=== PATIENT | male | born 1965 | race Caucasian/White ===

== ENCOUNTER → 2017-11-01 08:00 | Outpatient (CLI) | payer OTHER, SELFPAY ==
[2017-11-01 10:36] LABS: Microalbumin:Creatinine Ratio 20.3 mg/g CRE (<30 mg/g CRE)
[2017-11-01 10:40] LABS: AST(SGOT) 28 U/L (15-37); Alanine Aminotransfer ALT/SGPT 54 U/L (16-61); Albumin, Serum 3.6 g/dL (3.2-5.0); Alkaline Phosphatase 68 U/L (45-117); Anion Gap 12 (5-15); BUN 13 mg/dL (7-18); BUN/Creat Ratio 14.9 RATIO (10-20); Bilirubin, Direct 0.06 mg/dL (0.00-0.30); Calcium,Total 9.1 mg/dL (8.5-10.1); Chloride 103 mmol/L (98-107); Cholesterol 163 mg/dL (200); Creatinine, Serum 0.87 mg/dL (0.70-1.30); EST Glomerular Filtration Rate 98 mL/min (>60); Est Glom Filt Rate - Afr Amer 118 mL/min (>60); Globulin 4.4 g/dL (2.2-4.2); Glucose 137 mg/dL (74-106); High Density Lipoprotein 32 mg/dL; Potassium 4.3 mmol/L (3.5-5.1); Sodium Level 139 mmol/L (136-145); Triglycerides 178 mg/dL; Very Low Density Lipoprotein 36 mg/dL (5-40)
[2017-11-01 10:44] LABS: Hemoglobin A1c 6.9 % (4.2-6.3)
== END ==
PROVIDERS: Family Provider Family Medicine; PCP Family Medicine; Visit Provider Family Medicine
DX: E11.9 Type 2 diabetes mellitus without complications (principal)
CPT/HCPCS: 36415; 80048; 80061; 80076; 82043; 82570; 83036

== ENCOUNTER → 2018-05-22 12:18 | Outpatient (CLI) | payer OTHER, SELFPAY | PROVIDERS: Family Provider Family Medicine; PCP Family Medicine; Referring Provider Family Medicine; Visit Provider Family Medicine | DX: E11.9 Type 2 diabetes mellitus without complications (principal) ==

== ENCOUNTER → 2018-06-29 12:22 | Outpatient (CLI) | payer OTHER, SELFPAY | PROVIDERS: Family Provider Family Medicine; PCP Family Medicine; Referring Provider Family Medicine; Visit Provider Family Medicine | DX: N39.0 Urinary tract infection, site not specified (principal) | CPT/HCPCS: 87086 ==

== ENCOUNTER 2018-10-22 18:49 | Emergency (ER) | payer OTHER, SELFPAY ==
[2018-10-22 18:50] VITALS: BP 168/118; PULSE 111; RESP 28; TEMP 36.1; O2SAT 97; BMI 39.9
[2018-10-22] MEDS: Ondansetron 4 MG/2 ML Vial IV (19:09)
[2018-10-22] MEDS: Morphine 4 MG/ML Syringe IV (19:10)
[2018-10-22 19:17] LABS: Bacteria 0 SEEN /hpf (None Seen); Mucous, Urine 0 SEEN /hpf (<or=2+); Squamous Epithelial Cells - UA 0 SEEN /hpf (0-5)
[2018-10-22] MEDS: Ketorolac 15 MG/ML Vial IV (19:17)
--- NOTE | 2018-10-22 19:20 | CT_ITS ---
STUDY: CT ABDOMEN AND PELVIS WITHOUT CONTRAST REASON FOR EXAM: Male, 53 years old. Left flank pain. History of kidney stones. RADIATION DOSAGE (If Supplied By Facility): CTDIvol = ( 22.33 ) mGy, DLP = ( 1177.06 ) mGycm TECHNIQUE: Transaxial images were obtained from the dome of the diaphragm to the symphysis pubis without oral contrast, and without intravenous contrast. Sagittal and coronal images were reconstructed. Individualized dose optimization techniques were used for this CT. COMPARISON: CT with oral and IV contrast August 11, 2014; abdominal ultrasound July 22, 2014. FINDINGS: The visualized lung bases are unremarkable. The visualized portions of the heart are within normal limits. There is decreased attenuation of the liver consistent with steatosis. There is hepatomegaly with the right lobe measuring 23.9 cm in height. The portal vein diameter is 15.5 mm. There are surgical clips in the gallbladder fossa consistent with a prior cholecystectomy. Normal spleen. Normal pancreas. Normal bilateral adrenal glands. The stone seen previously in the upper pole right kidney is not present, but an 8mm nonobstructing stone is now seen at the lower pole. On the left, lower pole nonobstructing stone has increased to 8 mm diameter. There is minimal left pelvocaliectasis and subtle perinephric stranding due to a 2 mm stone near the ureteropelvic junction. The ureter below this point is nondistended Normal visualized stomach. Normal small intestine. Normal colon. There is non-visualization of the appendix. There is minimal atherosclerotic calcification of the abdominal aorta, without a demonstrated aneurysm. Normal inferior vena cava. Normal retroperitoneum. Low volume urinary bladder. Normal visualized prostate gland. There is a small umbilical hernia containing fat. There are diffuse degenerative changes of the visualized thoracic spine, with multilevel large bridging or nonbridging anterolateral endplate osteophytes. This continues in the upper lumbar spine, while more mild degenerative changes are seen in the lower lumbar region. CT/Abdomen/Pelvis without Cont IMPRESSION: 1. Bilateral nephrolithiasis again noted. Minimal left pelvocaliectasis due to 2 mm stone at the ureteropelvic junction. 2. Hepatomegaly with steatosis. 3. Prior cholecystectomy. 4. The bowel is unremarkable without signs of obstruction. The appendix is not visualized. 5. Stable small, fat-containing umbilical hernia. 6. Stable degenerative changes of the spine, as noted. Electronically Signed: Zana Otero MD at 19:51 EDT , Service support ,
--- NOTE | 2018-10-22 19:45 | ED.VIS.GI ---
History of Present Illness Chief Complaint: Flank Pain Informant: Patient - Abdominal Pain/Flank Pain Onset: Yesterday Context: Sudden Onset Timing: Continuous - and much worse in past couple hrs Location: Left Flank Current Severity: Severe Maximum Severity: Severe Worsened by: Nothing Relieved by: Nothing - Nausea/Vomiting/Emesis GI Symptom: Negative for: Nausea, Vomiting - Diarrhea/Melena/Hematochezia GI Symptom: Negative for: Diarrhea, Melena, Hematochezia Associated Symptoms: Negative for: Dysuria, Frequency, Hematuria, Urgency Narrative: Patient has had numerous kidney stones in the past, all of which he has passed on his own and never needed lithotripsy or surgery for. He felt like he had another one yesterday in the left flank, he has not had a CAT scan in 5 years although then it showed multiple right-sided nephrolithiasis, yesterday the pain eased off and then returned an hour or so prior to arrival very severe and constant, not colicky, he states it is never felt this severe before. No urinary symptoms. No syncopal episodes or radiation into his back it is just in his left lower quadrant at this time, no scrotal discomfort. Prior similar symptoms: Yes - KS pain - Past Medical History (1) Hypertension Status: Chronic (2) Hyperlipidemia Status: Chronic (3) Type 2 diabetes mellitus Status: Chronic (4) Kidney stones Status: Chronic Past Medical History - Allergies and Home Meds Allergies/Adverse Reactions: Allergies No Known Allergies Allergy (Verified 10/22/18 18:50) Primary Care Physician: Victorino Foreman MD [Primary Care Provider] - Lives: Spouse/ Significant Other Smoking Status: Former smoker Drugs: None Review of Systems General: Denies: Chills, Fever, Sweats Eyes: Denies: Visual changes - bilaterally, Diplopia ENT: Denies: Rhinorrhea, Sore throat Cardiovascular: Denies: Chest pain, Palpitations Respiratory: Denies: Dyspnea, Cough, Dyspnea on exertion Gastrointestinal: Reports: Abdominal pain. Denies: Nausea, Vomiting, Diarrhea, Melena, Hematochezia Genitourinary: Denies: Dysuria, Hematuria, Frequency Musculoskeletal: Denies: Back pain, Extremity Pain Skin: Denies: Rash, Wounds Neurological: Denies: Headache, Weakness, Numbness Physical Exam Vital Signs/Narrative: Vital Signs Temp Pulse Resp BP Pulse Ox 10/22/18 18:50 96.9 F L 111 H 28 H 168/118 H 97 Inital Vital Signs reviewed: Yes General: Well nourished, Well developed, Obese, Acute Distress - Painful, pacing the room Head: Normocephalic, Atraumatic Eyes: Perrl, EOMI ENT: Moist mucous membranes, No rhinorrhea Neck: Supple, Nontender Cardiovascular: Regular rate, Regular rhythm, No murmurs, Tachycardia Respiratory: No distress, CTA bilaterally, Chest nontender Abdomen: Soft, Nontender, Nondistended, Normal bowel sounds Back: Nontender, Normal Inspection. Negative for: CVA tenderness Extremities: Nontender, No edema Skin: Normal color, No rash, Diaphoresis - Face/forehead, No Trauma Neurological: Alert, Oriented x3, Cranial nerves II-XII grossly intact, Normal Strength, Normal Sensation, Normal Gait Psychological: Normal Mood, - - Anxious Diagnostic/Tx/Re-eval Impressions Abdomen/Pelvis CT 10/22/18 19:20 IMPRESSION: 1. Bilateral nephrolithiasis again noted. Minimal left pelvocaliectasis due to 2 mm stone at the ureteropelvic junction. 2. Hepatomegaly with steatosis. 3. Prior cholecystectomy. 4. The bowel is unremarkable without signs of obstruction. The appendix is not visualized. 5. Stable small, fat-containing umbilical hernia. 6. Stable degenerative changes of the spine, as noted. Electronically Signed: Zana Otero MD at 19:51 EDT , Service support , 10/22/18 19:20 CT Abd [Abdomen/Pelvis without Cont] [CT] Stat Laboratory Results 10/22/18 10/22/18 10/22/18 19:00 19:00 19:12 WBC 9.3 RBC 4.51 L Hgb 14.1 Hct 40.7 MCV 90.2 MCH 31.3 MCHC 34.6 RDW Std Deviation 41.6 RDW Coeff of Yanely 12.6 Plt Count 255 MPV 11.4 Immature Gran % (Auto) 0.500 Neut % (Auto) 65.0 Lymph % (Auto) 23.9 Coffey % (Auto) 9.4 Eos % (Auto) 0.9 Baso % (Auto) 0.3 Absolute Neuts (auto) 6.1 Absolute Lymphs (auto) 2.23 Nucleated RBC % 0 Sodium 141 Potassium 4.3 Chloride 104 Carbon Dioxide 27.0 Anion Gap 10 BUN 17 Creatinine 1.32 H Estim Creat Clear Calc 65.46 Est GFR (MDRD) Af Amer 73 Est GFR (MDRD) Non-Af 60 BUN/Creatinine Ratio 12.9 Glucose 199 H Calcium 9.7 Urine Color Yellow Urine Clarity Clear Urine pH 5.0 Ur Specific [place] 1.025 Urine Protein 15 H Urine Glucose (UA) 50 H Urine Ketones Negative Urine Occult Blood 250 H Urine Nitrite Negative Urine Bilirubin Negative Urine Urobilinogen Normal Ur Leukocyte Esterase Negative Urine RBC 10-25 SEEN Urine WBC 0 SEEN Ur Squamous Epith Cells 0 SEEN Urine Bacteria 0 SEEN Urine Mucus 0 SEEN - Medical Decision Making After treatment with analgesics patient is feeling much better, on reexamination his symptoms are resolved and he has been very comfortable for the past 1.5 hours. Labs show mild renal insufficiency, not enough that he needs acute intervention or admission at this time with a creatinine of 1.3. His urine shows no signs of infection but blood is present. CT shows mild pelvocaliectasis in his left renal pelvis along with a 2 mm stone present that presumably is causing his pain. There is no other sign of ureterolithiasis. We had him strain urine here but he did not catch any. There are also multiple other stones in both kidneys. At this time think he stable for discharge home, will give him a prescription for analgesics and follow-up with urology. He is comfortable with that plan and is established with the urology practice here. ED Disposition - Plan for ED Patient: Disposition: Home or Assisted Living Diagnosis: Bilateral nephrolithiasis, Pelvicaliectasis Instructions: KIDNEY STONE w/ Colic Prescriptions: Oxycodone HCl/Acetaminophen [Percocet 5/325] 1 tab PO Q6H PRN PRN 3 Days #12 tab PRN Reason: Pain Prescription Printed Referrals: Victorino Foreman MD [Primary Care Provider] - Mario Montanez MD [STAFF PHYSICIAN] - (Call for appointment)
[2018-10-22 20:03] LABS: Absolute Lymphocyte Count 2.23 X10^3/uL (0.83-4.51); Absolute Neutrophil Count 6.1 X10^3/uL (2.0-7.7); Basophil# 0.03 X10^3/uL; Basophil% 0.3 % (0-1); Eosinophil# 0.08 X10^3/uL; Eosinophils% 0.9 % (0-5); Hematocrit 40.7 % (40-54); Hemoglobin 14.1 g/dL (13.0-16.5); Lymphocyte # 2.23 X10^3/ul (4.0); Lymphocyte % 23.9 % (19-41); Mean Corp Hgb Conc 34.6 g/dL (32-36); Mean Corpuscular Hgb 31.3 pg (27.0-32.0); Mean Corpuscular Volume 90.2 fL (80-94); Mean Platelet Vol. 11.4 fl (6.2-12.0); Monocyte# 0.88 X10^3/uL; Monocyte% 9.4 % (0-10); NRBC Flagged by Analyzer 0 % (0-5); Neutrophil # 6.05 X10^3/uL (2.7-7.7); Platelet Count 255 K/mm3 (150-450); RBC Distribution Width CV 12.6 % (11.6-14.6); RBC Distribution Width SD 41.6 fl (35.1-43.9); Red Blood Count 4.51 M/mm3 (4.6-6.2); White Blood Count 9.3 K/mm3 (4.4-11.0)
[2018-10-22 20:08] LABS: Anion Gap 10 (5-15); BUN 17 mg/dL (7-18); BUN/Creat Ratio 12.9 RATIO (10-20); Calcium,Total 9.7 mg/dL (8.5-10.1); Chloride 104 mmol/L (98-107); Creatinine, Serum 1.32 mg/dL (0.70-1.30); EST Glomerular Filtration Rate 60 mL/min (>60); Est Glom Filt Rate - Afr Amer 73 mL/min (>60); Estimated Creatinine Clearance 65.46 ml/min; Glucose 199 mg/dL (74-106); Potassium 4.3 mmol/L (3.5-5.1); Sodium Level 141 mmol/L (136-145)
[2018-10-22 20:44] LABS: Color, Urine Yellow (Yellow); Glucose, Dipstick 50 mg/dl (Normal); Ketone-Dipstick Negative (Negative); Leukocyte Esterase-Dipstick Negative /ul (Negative); Nitrite-Dipstick Negative (Negative); Occult Blood-Urine 250 /ul (Negative); Protein-Dipstick 15 mg/dl (Negative); Specific Gravity, Urine 1.025 (1.002-1.030); Urine Bilirubin Dipstick Negative (Negative); Urine Clarity Clear (Clear); Urine Urobilinogen Normal (Normal)
[2018-10-22 20:47] LABS: Red Blood Cells-Urine 10-25 SEEN /hpf (0-5); White Blood Cells 0 SEEN /hpf (0-5)
[2018-10-22 21:44] VITALS: RESP 16
[2018-10-22] MEDS: oxyCODONE 5 MG Tablet PO (22:32)
[2018-10-22 22:39] VITALS: BP 121/64; PULSE 92; RESP 18; O2SAT 95
== END 2018-10-22 22:39 | disposition home or self-care (01) ==
PROVIDERS: Emergency Provider Emergency Medicine; Family Provider Family Medicine; PCP Family Medicine
DX: N20.2 Calculus of kidney with calculus of ureter (principal); N28.89 Other specified disorders of kidney and ureter; I10 Essential (primary) hypertension; E11.9 Type 2 diabetes mellitus without complications; E78.5 Hyperlipidemia, unspecified; Z87.442 Personal history of urinary calculi; Z79.84 Long term (current) use of oral hypoglycemic drugs; Z79.899 Other long term (current) drug therapy; Z87.891 Personal history of nicotine dependence
CPT/HCPCS: 74176; 80048; 81001; 85025; 96374; 96375; 99285; A4216; J2405

== ENCOUNTER 2018-11-07 12:21 | Day surgery (SDC) | payer OTHER, SELFPAY ==
--- NOTE | 2018-11-07 12:15 | RAD_ITS ---
STUDY: X-RAY - ABDOMEN/PELVIS REASON FOR EXAM: Male, 53 years old. Kidney stones. TECHNIQUE: Single AP view of the abdomen / pelvis. COMPARISON: None. FINDINGS: There is an unremarkable bowel gas pattern. There is a 9 mm calculus in the lower pole calyx of the right kidney. There is also evidence of a 7.1 mm calculus in the mid lower pole of the left kidney. The patient is status post cholecystectomy. Normal visualized osseous structures. RAD/Abdomen Single View IMPRESSION: Calyceal stones in the lower poles of both kidneys as described. Electronically Signed: Monty Fletcher, at 12:57 EDT , Service support ,
[2018-11-07 13:06] VITALS: BP 159/98; PULSE 126; RESP 18; TEMP 36.2; O2SAT 99; BMI 39.0
[2018-11-07 13:20] LABS: Bedside Glucose 124 mg/dL (70-110)
--- NOTE | 2018-11-07 14:59 | PCM.DC.URO ---
Discharge Diet: Light diet - advance as tolerated Discharge Activity: Return to Normal Activity, May not drive while taking narcotic pain medications. Call your doctor if your incision/area has: Sudden Increased Bleeding Call your doctor if you observe: Uncontrolled pain Suture Line Care: Avoid Pulling/Pushing, Avoid Pinching/Bending Allergies/Adverse Reactions: Allergies No Known Allergies Allergy (Verified 11/02/18 09:00) Medications to take at Discharge Glimepiride [Amaryl] 4 mg PO DAILY 10/22/18 Lisinopril [Prinivil] 10 mg PO DAILY 10/22/18 Metformin HCl 1,000 mg PO BID 10/22/18 Pravastatin [Pravachol] 40 mg PO DAILY 10/22/18 Aspirin [Aspir 81] 81 mg PO DAILY 11/02/18 Cetirizine HCl [Zyrtec] 10 mg PO DAILY 11/02/18 Ciprofloxacin [Cipro] 500 mg PO BID #14 tab 11/07/18 Hydrocodone/Acetaminophen [[place] 5-325 Tablet] 1 ea PO Q4H PRN PRN 7 Days #20 tab 11/07/18 The following prescriptions were given: Ciprofloxacin [Cipro] 500 mg PO BID #14 tab Prescription Printed Hydrocodone/Acetaminophen [[place] 5-325 Tablet] 1 ea PO Q4H PRN PRN 7 Days #20 tab PRN Reason: Pain Prescription Printed Primary Care Physician: Victorino Foreman MD [Primary Care Provider] - Test Results: Test results from this visit will be discussed in further detail at your follow-up appointment, if applicable. Please Follow Up With: Mario Montanez MD When: please call to make an appointment.
[2018-11-07] MEDS: Ketorolac 15 MG/ML Vial IV (15:00)
[2018-11-07] MEDS: Cefazolin 2 GM in 0.9% Normal Saline 100 ML IV (15:04)
--- NOTE | 2018-11-07 16:05 | OP.PCM_ITS ---
Report of Operation Date of Procedure: 11/07/18 Pre-Operative Diagnosis: Left renal calculi Post-Operative Diagnosis: The same Surgery/Procedure Performed:: Cystoscopy and left stent placement and left extracorporeal shockwave lithotripsy Description of Surgical Findings:: 53-year-old male with a stone in the left kidney presents today for shockwave lithotripsy he was taken back to the operating room after smooth induction of anesthesia he was placed in dorsolithotomy position went into the bladder with a 21 Frisian rigid cystourethroscope grabbed the wire advanced a wire up into the kidney over the wire place a stent 6 Frisian by 26 cm stent, pulled the string in the wire and the wire was removed and the stent coiled in the kidney bladder good position we then positioned the table for lithotripsy and then we found the stone in the left kidney under fluoroscopy and under fluoroscopic guidance we delivered 3000 shockwaves to the stone at a rate of 90 kV at the 5-6 and the stone appeared to have fragmented very successfully. At the end of the treatment cycle the patient's anesthetic was reversed. Leave the stent in until next week we will see him next week with a KUB it looks clear will remove the stent. Patient's anesthesia is currently being reversed. Type of Anesthesia:: General Drains: stent - Admit VTE Documentation VTE Present on Admission: No VTE Mechan Device Prophylaxis: SCD's
[2018-11-07 16:13] VITALS: BP 155/100; BP 159/98; PULSE 101; RESP 16; TEMP 36.7; O2SAT 98
[2018-11-07] MEDS: Lactated Ringers 1,000 ML 75 ML IV (16:23)
[2018-11-07 16:25] LABS: Bedside Glucose 111 mg/dL (70-110)
[2018-11-07 16:27] VITALS: BP 144/83; BP 159/98; PULSE 81; RESP 14; O2SAT 98
[2018-11-07 16:29] VITALS: BP 159/98; BP 161/78; PULSE 82; RESP 16; O2SAT 96
[2018-11-07 16:33] VITALS: BP 159/98; BP 160/89; PULSE 90; RESP 14; TEMP 36.3; O2SAT 97
[2018-11-07 17:08] VITALS: BP 159/98
== END 2018-11-07 17:12 | disposition home or self-care (01) ==
LOC: SDC 12:28 → AC 12:40
PROVIDERS: Family Provider Family Medicine; PCP Family Medicine; Referring Provider Urology; Visit Provider Urology
PROC: (CPT 50590; principal; 2018-11-07 14:25)
DX: N20.0 Calculus of kidney (principal); N41.1 Chronic prostatitis; I10 Essential (primary) hypertension; E78.00 Pure hypercholesterolemia, unspecified; E11.9 Type 2 diabetes mellitus without complications; G47.30 Sleep apnea, unspecified; E66.9 Obesity, unspecified; Z68.38 Body mass index [BMI] 38.0-38.9, adult; Z87.442 Personal history of urinary calculi; Z79.82 Long term (current) use of aspirin; Z79.84 Long term (current) use of oral hypoglycemic drugs; Z79.899 Other long term (current) drug therapy
CPT/HCPCS: 52356; 74018; 82962; J7120; C1769; C2617; J2405

== ENCOUNTER → 2018-11-15 12:41 | Outpatient (CLI) | payer OTHER, SELFPAY ==
[2018-11-07 13:06] VITALS: BMI 39.0
--- NOTE | 2018-11-15 12:43 | RAD_ITS ---
STUDY: X-RAY - ABDOMEN/PELVIS REASON FOR EXAM: Male, 53 years old. Left-sided kidney stone TECHNIQUE: AP supine abdomen and AP supine and pelvis, 2 images COMPARISON: X-ray abdomen 11/07/2017, CT abdomen and pelvis 10/22/2017. FINDINGS: Left double-J stent. No visible renal or ureteral calculus on the left. Retained lower pole calculus of the right kidney 7 mm stable compared to prior imaging. No other acute abdominopelvic process is evident. RAD/Abdomen Single View IMPRESSION: No visible retained left renal calculus. No evidence of calculus along the left double-J stent. Stable right lower pole calculus. Electronically Signed: Shaka Cooper MD at 13:48 EDT Tel , Service support ,
== END ==
PROVIDERS: Family Provider Family Medicine; PCP Family Medicine; Referring Provider Urology; Visit Provider Urology
DX: N20.0 Calculus of kidney (principal)
CPT/HCPCS: 74018

== ENCOUNTER → 2019-02-13 07:45 | Outpatient (CLI) | payer OTHER, SELFPAY ==
[2019-02-13 10:10] LABS: Anion Gap 10 (5-15); BUN 12 mg/dL (7-18); BUN/Creat Ratio 14.1 RATIO (10-20); Calcium,Total 9.3 mg/dL (8.5-10.1); Chloride 103 mmol/L (98-107); Cholesterol 159 mg/dL (200); Creatinine, Serum 0.85 mg/dL (0.70-1.30); EST Glomerular Filtration Rate 100 mL/min (>60); Est Glom Filt Rate - Afr Amer 122 mL/min (>60); Glucose 165 mg/dL (74-106); High Density Lipoprotein 31 mg/dL; Potassium 3.9 mmol/L (3.5-5.1); Sodium Level 138 mmol/L (136-145); Triglycerides 196 mg/dL; Very Low Density Lipoprotein 39 mg/dL (5-40)
[2019-02-13 10:11] LABS: Hemoglobin A1c 7.3 % (4.2-6.3)
== END ==
PROVIDERS: Family Provider Family Medicine; PCP Family Medicine; Referring Provider Family Medicine; Visit Provider Family Medicine
DX: E11.9 Type 2 diabetes mellitus without complications (principal); I10 Essential (primary) hypertension
CPT/HCPCS: 36415; 80048; 80061; 83036

== ENCOUNTER → 2019-02-15 14:47 | Outpatient (CLI) | payer OTHER, SELFPAY | PROVIDERS: Family Provider Family Medicine; PCP Family Medicine; Referring Provider Family Medicine; Visit Provider Family Medicine | DX: R30.0 Dysuria (principal) | CPT/HCPCS: 87086 ==

== ENCOUNTER → 2020-04-21 08:09 | Outpatient (CLI) | payer OTHER, SELFPAY ==
[2020-04-21 11:04] LABS: Anion Gap 9 (5-15); BUN 11 mg/dL (7-18); BUN/Creat Ratio 11.7 RATIO (10-20); Calcium,Total 9.5 mg/dL (8.5-10.1); Chloride 101 mmol/L (98-107); Cholesterol 163 mg/dL (200); Creatinine, Serum 0.94 mg/dL (0.70-1.30); EST Glomerular Filtration Rate 89 mL/min (>60); Est Glom Filt Rate - Afr Amer 107 mL/min (>60); Glucose 212 mg/dL (74-106); High Density Lipoprotein 33 mg/dL; Sodium Level 135 mmol/L (136-145); Triglycerides 249 mg/dL; Very Low Density Lipoprotein 50 mg/dL (5-40)
== END ==
PROVIDERS: PCP Family Medicine; Visit Provider Family Medicine
DX: E11.9 Type 2 diabetes mellitus without complications (principal)
CPT/HCPCS: 36415; 80048; 80061

== ENCOUNTER → 2020-07-17 15:57 | Outpatient (CLI) | payer OTHER, SELFPAY ==
[2020-07-17 18:02] LABS: Anion Gap 6 (5-15); BUN 14 mg/dL (7-18); BUN/Creat Ratio 14.9 RATIO (10-20); Calcium,Total 9.7 mg/dL (8.5-10.1); Chloride 104 mmol/L (98-107); Creatinine, Serum 0.94 mg/dL (0.70-1.30); EST Glomerular Filtration Rate 89 mL/min (>60); Est Glom Filt Rate - Afr Amer 107 mL/min (>60); Glucose 196 mg/dL (74-106); Potassium 4.1 mmol/L (3.5-5.1); Sodium Level 137 mmol/L (136-145)
== END ==
PROVIDERS: PCP Family Medicine; Visit Provider Family Medicine
DX: E11.9 Type 2 diabetes mellitus without complications (principal)
CPT/HCPCS: 36415; 80048

== ENCOUNTER 2020-07-23 13:47 | Outpatient (RCR) | payer OTHER, SELFPAY | END 2020-09-01 23:59 | LOC: IMMUN 13:47 | PROVIDERS: PCP Family Medicine; Visit Provider Family Medicine | DX: Z23 Encounter for immunization (principal) | CPT/HCPCS: 0001A; 0002A; 91300 ==

== ENCOUNTER → 2021-01-21 07:17 | Outpatient (CLI) | payer OTHER, SELFPAY ==
[2021-01-21 10:35] LABS: Microalbumin,Random Urine 8.3 mg/L (NO RANGE EST.)
[2021-01-21 10:38] LABS: Anion Gap 9 (5-15); BUN 21 mg/dL (7-18); BUN/Creat Ratio 20.8 RATIO (10-20); Calcium,Total 9.5 mg/dL (8.5-10.1); Chloride 102 mmol/L (98-107); Cholesterol 165 mg/dL (200); Creatinine, Serum 1.01 mg/dL (0.70-1.30); EST Glomerular Filtration Rate 82 mL/min (>60); Est Glom Filt Rate - Afr Amer 99 mL/min (>60); Glucose 124 mg/dL (74-106); High Density Lipoprotein 35 mg/dL; Potassium 4.5 mmol/L (3.5-5.1); Sodium Level 135 mmol/L (136-145); Triglycerides 160 mg/dL; Very Low Density Lipoprotein 32 mg/dL (5-40)
== END ==
PROVIDERS: PCP Family Medicine; Referring Provider Family Medicine; Visit Provider Family Medicine
DX: I10 Essential (primary) hypertension (principal)
CPT/HCPCS: 36415; 80048; 80061; 82043

== ENCOUNTER → 2021-10-20 | Outpatient (CLI) | payer OTHER, SELFPAY ==
[2021-10-20 10:13] LABS: Anion Gap 7 (5-15); BUN 26 mg/dL (7-18); BUN/Creat Ratio 25.7 RATIO (10-20); Calcium,Total 9.7 mg/dL (8.5-10.1); Chloride 104 mmol/L (98-107); Cholesterol 154 mg/dL (200); Creatinine, Serum 1.01 mg/dL (0.70-1.30); EST Glomerular Filtration Rate 81 mL/min (>60); Est Glom Filt Rate - Afr Amer 99 mL/min (>60); Glucose 101 mg/dL (74-106); High Density Lipoprotein 33 mg/dL; Potassium 4.6 mmol/L (3.5-5.1); Sodium Level 136 mmol/L (136-145); Triglycerides 152 mg/dL; Very Low Density Lipoprotein 30 mg/dL (5-40)
== END | disposition home or self-care (01) ==
LOC: MTLAB 07:15
PROVIDERS: PCP Family Medicine; Referring Provider Family Medicine; Visit Provider Family Medicine
DX: I10 Essential (primary) hypertension (principal)
CPT/HCPCS: 36415; 80048; 80061

== ENCOUNTER → 2022-08-17 | Outpatient (CLI) | payer OTHER, SELFPAY ==
[2022-08-17 10:38] LABS: Anion Gap 7 (5-15); BUN 15 mg/dL (7-18); Calcium,Total 9.5 mg/dL (8.5-10.1); Chloride 105 mmol/L (98-107); Cholesterol 143 mg/dL (200); Creatinine, Serum 0.94 mg/dL (0.70-1.30); EST Glomerular Filtration Rate 89 mL/min (>60); Est Glom Filt Rate - Afr Amer 107 mL/min (>60); Glucose 126 mg/dL (74-106); High Density Lipoprotein 34 mg/dL; Potassium 4.9 mmol/L (3.5-5.1); Sodium Level 137 mmol/L (136-145); Triglycerides 108 mg/dL; Very Low Density Lipoprotein 22 mg/dL (5-40)
== END | disposition home or self-care (01) ==
LOC: MFPLAB 08:32
PROVIDERS: PCP Family Medicine; Visit Provider Family Medicine
DX: E11.9 Type 2 diabetes mellitus without complications (principal)
CPT/HCPCS: 36415; 80048; 80061

== ENCOUNTER → 2023-06-22 | Outpatient (CLI) | payer OTHER, SELFPAY ==
[2023-06-22 10:18] LABS: Microalbumin,Random Urine 23.9 mg/L (NO RANGE EST.); Microalbumin:Creatinine Ratio 32.3 mg/g CRE (<30 mg/g CRE)
[2023-06-22 10:42] LABS: AST(SGOT) 18 U/L (15-37); Alanine Aminotransfer ALT/SGPT 23 U/L (16-61); Alkaline Phosphatase 85 U/L (45-117); Anion Gap 5 (5-15); BUN 17 mg/dL (7-18); BUN/Creat Ratio 19.3 RATIO (10-20); Calcium,Total 9.5 mg/dL (8.5-10.1); Chloride 102 mmol/L (98-107); Cholesterol 171 mg/dL (200); Creatinine, Serum 0.88 mg/dL (0.70-1.30); EST Glomerular Filtration Rate 95 mL/min (>60); Est Glom Filt Rate - Afr Amer 115 mL/min (>60); Glucose 134 mg/dL (74-106); High Density Lipoprotein 40 mg/dL; Potassium 4.5 mmol/L (3.5-5.1); Sodium Level 134 mmol/L (136-145); Triglycerides 183 mg/dL; Very Low Density Lipoprotein 37 mg/dL (5-40)
== END | disposition home or self-care (01) ==
LOC: MFPLAB 08:28
PROVIDERS: PCP Family Medicine; Visit Provider Family Medicine
DX: E11.9 Type 2 diabetes mellitus without complications (principal)
CPT/HCPCS: 36415; 80053; 80061; 82043; 82570

== ENCOUNTER → 2023-10-30 | Outpatient (CLI) | payer OTHER, SELFPAY ==
[2023-10-30 10:27] LABS: ALB/GLOB Ratio 0.9 RATIO (0.9-2.4); AST(SGOT) 18 U/L (15-37); Alanine Aminotransfer ALT/SGPT 22 U/L (16-61); Albumin, Serum 3.7 g/dL (3.2-5.0); Alkaline Phosphatase 66 U/L (45-117); Anion Gap 6 (5-15); BUN 17 mg/dL (7-18); BUN/Creat Ratio 17.1 RATIO (10-20); Calcium,Total 9.3 mg/dL (8.5-10.1); Chloride 105 mmol/L (98-107); Cholesterol 125 mg/dL (200); Creatinine, Serum 0.99 mg/dL (0.70-1.30); EST Glomerular Filtration Rate 82 mL/min (>60); Est Glom Filt Rate - Afr Amer 100 mL/min (>60); Glucose 137 mg/dL (74-106); High Density Lipoprotein 38 mg/dL; Potassium 4.4 mmol/L (3.5-5.1); Protein, Total 7.7 g/dL (6.4-8.2); Sodium Level 137 mmol/L (136-145); Thyroid Stim Hormone (TSH) 1.51 uIU/mL (0.358-3.74); Triglycerides 123 mg/dL; Very Low Density Lipoprotein 25 mg/dL (5-40)
== END | disposition home or self-care (01) ==
PROVIDERS: PCP Family Medicine; Referring Provider Physician Assistant; Visit Provider Physician Assistant
DX: E11.21 Type 2 diabetes mellitus with diabetic nephropathy (principal); E78.2 Mixed hyperlipidemia; E04.9 Nontoxic goiter, unspecified
CPT/HCPCS: 36415; 80053; 80061; 84443

== ENCOUNTER → 2024-02-01 | Outpatient (CLI) | payer OTHER, SELFPAY ==
[2024-02-01 10:32] LABS: AST(SGOT) 11 U/L (15-37); Alanine Aminotransfer ALT/SGPT 20 U/L (16-61); Albumin, Serum 3.8 g/dL (3.2-5.0); Alkaline Phosphatase 66 U/L (45-117); Anion Gap 6 (5-15); BUN 18 mg/dL (7-18); BUN/Creat Ratio 17.6 RATIO (10-20); Calcium,Total 9.3 mg/dL (8.5-10.1); Chloride 107 mmol/L (98-107); Creatinine, Serum 1.02 mg/dL (0.70-1.30); EST Glomerular Filtration Rate 80 mL/min (>60); Est Glom Filt Rate - Afr Amer 97 mL/min (>60); Globulin 3.7 g/dL (2.2-4.2); Glucose 197 mg/dL (74-106); Potassium 4.3 mmol/L (3.5-5.1); Protein, Total 7.5 g/dL (6.4-8.2); Sodium Level 138 mmol/L (136-145)
[2024-02-01 10:50] LABS: Microalbumin,Random Urine 5.6 mg/L (NO RANGE EST.); Microalbumin:Creatinine Ratio 14.6 mg/g CRE (<30 mg/g CRE)
[2024-02-01 12:41] LABS: Hemoglobin A1c 7.3 % (3.8-5.6)
== END | disposition home or self-care (01) ==
LOC: MFPLAB 08:43
PROVIDERS: PCP Family Medicine; Visit Provider Physician Assistant
DX: E11.21 Type 2 diabetes mellitus with diabetic nephropathy (principal); E55.9 Vitamin D deficiency, unspecified
CPT/HCPCS: 36415; 80053; 82043; 82306; 82570; 83036

== ENCOUNTER → 2024-08-29 | Outpatient (CLI) | payer OTHER, SELFPAY ==
--- OUTSIDE RECORDS SUMMARY | 2024-08-29 08:47 | XMS RPT_ITS | CCD ---
Author Organization [facility] Care Team Providers Care Communication Center Coordinator Name Role Phone Victorino Mckeon Attending Unavailable Mike, Victorino Primary Care Unavailable Mckeon, Victorino Primary Care Unavailable Emily Beltran Referring Unavailable Emily Beltran Attending Unavailable Mike, Victorino Primary Care Unavailable Emily Beltran Attending Unavailable Victorino Mckeon MD Primary Care Provider FREDI ORELLANA Attending Unavailable MCKEON, VICTORINO Liang Primary Care Unavailable DLUGJOHN, ISATU Attending Unavailable PROVIDER, UNKNOWN Referring Unavailable MCKEON, VICTORINO Liang Primary Care Unavailable DLUGJOHN, ISATU Attending Unavailable PROVIDER, UNKNOWN Referring Unavailable MCKEON, VICTORINO Liang Primary Care Unavailable DLUGOSS, ISATU Attending Unavailable PROVIDER, UNKNOWN Referring Unavailable MCKEON, VICTORINO Liang Primary Care Unavailable PROVIDER, UNKNOWN Referring Unavailable MCKEON, VICTORINO Liang Primary Care Unavailable DLUGOSS, ISATU Attending Unavailable PROVIDER, UNKNOWN Referring Unavailable MCKEON, VICTORINO Liang Primary Care Unavailable PROVIDER, UNKNOWN Referring Unavailable MCKEON, VICTORINO Liang Primary Care Unavailable DLUGJOHN, ISATU Attending Unavailable PROVIDER, UNKNOWN Referring Unavailable MIKE, VICTORINO Liang Primary Care Unavailable Medications Current Medications Medication Drug Class(es) Dates Sig (Normalized) Sig (Original) aspirin 81 mg delayed release oral tablet (11 sources) Platelet Aggregation Inhibitor, Nonsteroidal Anti-inflammatory Drug Start: 11-02-2018 take 81 mg by mouth once daily Aspirin Active 81 MG PO DAILY November 02, 2018 12:00am take 1 tablet by mouth once robin y aspirin (JAMES CHEWABLE ASPIRIN) 81 mg chewable tablet Take 81 mg by mouth once daily. Active cetirizine hydrochloride 10 mg oral capsule (3 sources) Histamine-1 Receptor Antagonist Start: 11-02-2018 take 10 mg by mouth once daily Cetirizine Active 10 MG PO DAILY November 02, 2018 12:00am ciprofloxacin 500 mg oral tablet (3 sources) Quinolone Antimicrobial Start: 11-07-2018 take 500 mg by mouth twice daily Ciprofloxacin Hcl Active 500 MG PO TWICE A DAY November 07, 2018 12:00am CPAP (8 sources) Start: 06-20-2019 CPAP Indications: KRISH on CPAP CPAP supplies. Life time supplies. Request for new DME - HCS. Pt with functioning [employer]Med AirSense set at [id number] with EPR of 3. Compliant. 1 Device 06/20/2019 Active 24 hr empagliflozin 12.5 mg / metFORMIN hydrochloride 1000 mg extended release oral tablet (8 sources) Biguanide, Sodium-Glucose Cotransporter 2 Inhibitor Start: 02-16-2024 take 2 tablets by mouth once daily in the morning SYNJARDY XR 12.5-1,000 mg XR tab Take 2 tablets by mouth every morning. 02/16/2024 Active ergocalciferol 1.25 mg oral capsule (8 sources) Provitamin D2 Compound Start: 02-16-2024 take 1 capsule by mouth every week ergocalciferol 50,000 unit capsule (VITAMIN D2, DRISDOL) Take 1 capsule by mouth one time a week. 02/16/2024 Active glimepiride 4 mg oral tablet (11 sources) Sulfonylurea Start: 10-22-2018 take 4 mg by mouth once daily Glimepiride Active 4 MG PO DAILY October 22, 2018 12:00am lisinopril 40 mg oral tablet (12 sources) Angiotensin Converting Enzyme Inhibitor Start: 12-12-2023 lisinopril (ZESTRIL) 40 mg tablet 12/12/2023 Active Start: 10-22-2018 take 10 mg by mouth once daily Lisinopril Active 10 MG PO DAILY October 22, 2018 12:00am End: 02-28-2024 lisinopril (ZESTRIL, PRINIVI L) 5 mg tablet Take 40 mg by mouth once daily. 02/28/2024 Discontinued metFORMIN hydrochloride 1000 mg oral tablet (4 sources) Biguanide Start: 10-22-2018 End: 02-28-2024 take 1000 mg by mouth twice daily Metformin Active 1000 MG PO TWICE A DAY October 22, 2018 12:00am phenazopyridine hydrochloride 100 mg oral tablet (3 sources) Start: 11-07-2018 take 100 mg by mouth three times daily Phenazopyridine Active 100 MG PO THREE TIMES A DAY November 07, 2018 12:00am pravastatin sodium 40 mg oral tablet (4 sources) HMG-CoA Reductase Inhibitor Start: 10-22-2018 End: 02-28-2024 take 40 mg by mouth once daily Pravastatin Active 40 MG PO DAILY October 22, 2018 12:00am rosuvastatin calcium 20 mg oral tablet (8 sources) HMG-CoA Reductase Inhibitor Start: 02-16-2024 take 1 tablet by mouth once rosuvastatin (CRESTOR) 20 mg tablet Take 1 tablet by mouth every afternoon. 02/16/2024 Active Completed/Discontinued Medications Medication Drug Class(es) Dates Sig (Normalized) Sig (Original) acetaminophen 325 mg / HYDROcodone bitartrate 5 mg oral tablet (3 sources) Opioid Agonist Start: 11-07-2018 End: 11-14-2018 Hydrocodone-Acetami nophen Discontinued 1 EACH PO EVERY 4 HOURS NEEDED 13 10November 07, 2018 November 14, 2018 12:07am acetaminophen 325 mg / oxyCODONE hydrochloride 5 mg oral tablet (3 sources) Opioid Agonist Start: 10-22-2018 End: 10-27-2018 take 1 tablet by mouth every six hours as needed Oxycodone-Acetamino phen Discontinued 1 TABLET PO EVERY 6 HOURS NEEDED 02 26October 22, 2018 October 27, 2018 12:09am Problems Active Problems Problem Classification Problem Date Documented Date Episodic/Chronic Calculus of urinary tract (6 sources) Kidney stone; Translations: [Calculus of kidney] 11-07-2018 Episodic Diabetes mellitus with complications (1 source) Type 2 diabetes mellitus with diabetic nephropathy; Translations: [Type 2 diabetes mellitus with diabetic nephropathy] Onset: 02-26-2024 Chronic Diabetes mellitus without complication (12 sources) Type 2 diabetes mellitus; Translations: [Type 2 diabetes mellitus without complications] Onset: 12-21-2016 11-07-2018 Chronic Disorders of lipid metabolism (3 sources) Hyperlipidemia; Translations: [Hyperlipidemia, unspecified] 11-07-2018 Chronic Essential hypertension (3 sources) Hypertensive disorder; Translations: [Essential (primary) hypertension] 11-07-2018 Chronic Osteoarthritis (14 sources) Osteoarthritis of left knee joint; Translations: [Unilateral primary osteoarthritis, left knee] Onset: 02-29-2024 02-28-2024 Chronic Other diseases of kidney and ureters (3 sources) Kidney disease; Translations: [Other specified disorders of kidney and ureter] 10-23-2018 Chronic Residual codes; unclassified (8 sources) Hypersomnia; Translations: [Hypersomnia, unspecified] Onset: 10-12-2016 08-04-2017 Chronic Residual codes; unclassified (1 source) Pain; Translations: [Pain, unspecified] 02-28-2024 Episodic Past or Other Problems Problem Classification Problem Date Documented Da te Episodic/Chronic Malaise and fatigue (8 sources) Fatigue; Translations: [Other fatigue] Onset: 10-12-2016 08-04-2017 Episodic Residual codes; unclassified (1 source) Pain, unspecified; Translations: [Pain] Onset: 02-28-2024 Episodic Results Test Name Value Interpretation Reference Range Facility CNTHERAPYon 04-04-2024 CNTHERAPY OT/PT/Speech Visit (PTMDRG) EVERARDO MARES ([id number]) 1965 M Date Time Provider Department 04/04/24 10:45 AM ISATU AGUILERA Date Time Provider Department Center 04/04/2024 10:45 AM [id number] AGUILERA [facility] Reason for Visit: PT Progress Note [1596] PT Discharge [752] Primary Visit Diagnosis:Primary osteoarthritis of left knee [M17.12] Allergies As of Date: 04/04/2024 (No Known Allergies) Date Reviewed: 02/28/2024 Reviewed by: Dena Marshall LPN - Fully Assessed Prescriptions as of 07/09/2024 - SYNJARDY XR 12.5-1,000 mg XR tab Take 2 tablets by mouth every morning. - ergocalciferol 50,000 unit capsule (VITAMIN D2, DRISDOL) Take 1 capsule by mouth one time a week. - rosuvastatin (CRESTOR) 20 mg tablet Take 1 tablet by mouth every afternoon. - lisinopril (ZESTRIL) 40 mg tablet - CPAP CPAP supplies. Life time supplies. Request for new DME - HCS. Pt with functioning ResMed AirSense set at [id number] with EPR of 3. Compliant. - glimepiride (AMARYL) 4 mg tablet Take 4 mg by mouth daily with breakfast. - aspirin (JAMES CHEWABLE ASPIRIN) 81 mg chewable tablet Take 81 mg by mouth once daily. Normal [facility] CNTHERAPYon 03-26-2024 CNTHERAPY OT/PT/Speech Visit (PTMDRG) EVERARDO MARES ([id number]) 1965 M Date Time Provider Department 03/26/24 9:15 AM ISATU AGUIELRA Date Time Provider Department Center 03/26/2024 9:15 AM [id number] AGUILERA PTMLONG [facility] Reason for Visit: Physical Therapy [503] Primary Visit Diagnosis:Primary osteoarthritis of left knee [M17.12] Allergies As of Date: 03/26/2024 (No Known Allergies) Date Reviewed: 02/28/2024 Reviewed by: Dena Marshall LPN - Fully Assessed Prescriptions as of 03/26/2024 - SYNJARDY XR 12.5-1,000 mg XR tab Take 2 tablets by mouth every morning. - ergocalciferol 50,000 unit capsule (VITAMIN D2, DRISDOL) Take 1 capsule by mouth one time a week. - rosuvastatin (CRESTOR) 20 mg tablet Take 1 tablet by mouth every afternoon. - lisinopril (ZESTRIL) 40 mg tablet - CPAP CPAP supplies. Life time supplies. Request for new DME - HCS. Pt with functioning ResMed AirSense set at [id number] with EPR of 3. Compliant. - glimepiride (AMARYL) 4 mg tablet Take 4 mg by mouth daily with breakfast. - aspirin (JAMES CHEWABLE ASPIRIN) 81 mg chewable tablet Take 81 mg by mouth once daily. Costumed Character: Therapy (PT/OT/Speech/Resp) ID: [id number] 03/26/2024 10:01 AM Author: ISATU AGUILERA Signed by ISATU AGUILERA PT, DPT on 03/26/2024 at 10:01 AM Document text: Program_ID:[id number] Access Code: [email or web address] URL: [email or web address]/ Date: 03-26-2024 Prepared By: Isatu Aguilera Program Notes Exercises - Sidelying Hip Abduction - 1 x daily - 7 x weekly - 3 sets - 10 reps - Small Range Straight Leg Raise - 1 x daily - 7 x weekly - 3 sets - 10 reps - Supine Hamstring Stretch with Strap - 1 x daily - 7 x weekly - 3 sets - 10 reps - Prone Quadriceps Stretch with Strap - 1 x daily - 7 x weekly - 3 sets - 10 reps - Supine Dynamic Modified Tom Quad and Hip Flexor Dynamic Stretch - 1 x daily - 7 x weekly - 3 sets - 10 reps - Standing Knee Flexion Stretch on Step - 1 x daily - 7 x weekly - 3 sets - 10 reps - Standing Gastroc Stretch on Step - 1 x daily - 7 x weekly - 3 sets - 10 reps - Hooklying Clamshell with Resistance - 1 x daily - 7 x weekly - 3 sets - 10 reps - Seated Hamstring Curl with Anchored Resistance - 1 x daily - 7 x weekly - 3 sets - 10 reps - Side Stepping with Resistance at Ankles - 1 x daily - 7 x weekly - 3 sets - 10 reps ----- [facility] THERAPY NT 03-26-2024 THERAPY NT HNO ID: [id number] Author: ISATU AGUILERA PT, DPT Service: Physical Therapy Author Type: Physical Therapist Type: Therapy (PT/OT/Speech/Resp) Filed: 03/26/2024 10:01 Note Text: Program_ID:[id number] Access Code: [email or web address] URL: [email or web address] [employer]/ Date: 03-26-2024 Prepared By: Isatu Aguilera Program Notes Exercises - Sidelying Hip Abduction - 1 x daily - 7 x weekly - 3 sets - 10 reps - Small Range Straight Leg Raise - 1 x daily - 7 x weekly - 3 sets - 10 reps - Supine Hamstring Stretch with Strap - 1 x daily - 7 x weekly - 3 sets - 10 reps - Prone Quadriceps Stretch with Strap - 1 x daily - 7 x weekly - 3 sets - 10 reps - Supine Dynamic Modified Tom Quad and Hip Flexor Dynamic Stretch - 1 x daily - 7 x weekly - 3 sets - 10 reps - Standing Knee Flexion Stretch on Step - 1 x daily - 7 x weekly - 3 sets - 10 reps - Standing Gastroc Stretch on Step - 1 x daily - 7 x weekly - 3 sets - 10 reps - Hooklying Clamshell with Resistance - 1 x daily - 7 x weekly - 3 sets - 10 reps - Seated Hamstring Curl with Anchored Resistance - 1 x daily - 7 x weekly - 3 sets - 10 reps - Side Stepping with Resistance at Ankles - 1 x daily - 7 x weekly - 3 sets - 10 reps Normal [facility] CNTHERAPYon 03-22-2024 CNTHERAPY OT/PT/Speech Visit (PTMDRG) EVERARDO MARES ([id number]) 1965 M Date Time Provider Department 03/22/24 2:00 PM TEA JIMENEZ [facility] Date Time Provider Department Center 03/22/2024 2:00 PM [id number] JIMENEZ PTMG [facility] Reason for Visit: Physical Therapy [503] Primary Visit Diagnosis:Primary osteoarthritis of left knee [M17.12] Allergies As of Date: 03/22/2024 (No Known Allergies) Date Reviewed: 02/28/2024 Reviewed by: Dena Marshall LPN - Fully Assessed Prescriptions as of 03/22/2024 - SYNJARDY XR 12.5-1,000 mg XR tab Take 2 tablets by mouth every morning. - ergocalciferol 50,000 unit capsule (VITAMIN D2, DRISDOL) Take 1 capsule by mouth one time a week. - rosuvastatin (CRESTOR) 20 mg tablet Take 1 tablet by mouth every afternoon. - lisinopril (ZESTRIL) 40 mg tablet - CPAP CPAP supplies. Life time supplies. Request for new DME - HCS. Pt with functioning ResMed AirSense set at [id number] with EPR of 3. Compliant. - glimepiride (AMARYL) 4 mg tablet Take 4 mg by mouth daily with breakfast. - aspirin (JAMES CHEWABLE ASPIRIN) 81 mg chewable tablet Take 81 mg by mouth once daily. Costumed Character: Therapy (PT/OT/Speech/Resp) ID: [id number] 03/22/2024 2:21 PM Author: TEA JIMENEZ Signed by TEA JIMENEZ PTA on 03/22/2024 at 2:21 PM Document text: Program_ID:[id number] Access Code: [email or web address] URL: [email or web address]/ Date: 03-22-2024 Prepared By: Isatu Aguilera Program Notes Exercises - Sidelying Hip Abduction - 1 x daily - 7 x weekly - 3 sets - 10 reps - Small Range Straight Leg Raise - 1 x daily - 7 x weekly - 3 sets - 10 reps - Supine Hamstring Stretch with Strap - 1 x daily - 7 x weekly - 3 sets - 10 reps - Prone Quadriceps Stretch with Strap - 1 x daily - 7 x weekly - 3 sets - 10 reps - Supine Dynamic Modified Tom Quad and Hip Flexor Dynamic Stretch - 1 x daily - 7 x weekly - 3 sets - 10 reps - Standing Knee Flexion Stretch on Step - 1 x daily - 7 x weekly - 3 sets - 10 reps - Standing Gastroc Stretch on Step - 1 x daily - 7 x weekly - 3 sets - 10 reps - Hooklying Clamshell with Resistance - 1 x daily - 7 x weekly - 3 sets - 10 reps ----- [facility] THERAPY NTon 03-22-2024 THERAPY NT HNO ID: [id number] Author: TEA JIMENEZ PTA Service: ? Author Type: Lock Assembler Type: Therapy (PT/OT/Speech/Resp) Filed: 03/22/2024 14:21 Note Text: Program_ID:[id number] Access Code: [email or web address] URL: [email or web address]/ Date: 03-22-2024 Prepared By: Isatu Aguilera Program Notes Exercises - Sidelying Hip Abduction - 1 x daily - 7 x weekly - 3 sets - 10 reps - Small Range Straight Leg Raise - 1 x daily - 7 x weekly - 3 sets - 10 reps - Supine Hamstring Stretch with Strap - 1 x daily - 7 x weekly - 3 sets - 10 reps - Prone Quadriceps Stretch with Strap - 1 x daily - 7 x weekly - 3 sets - 10 reps - Supine Dynamic Modified Tom Quad and Hip Flexor Dynamic Stretch - 1 x daily - 7 x weekly - 3 sets - 10 reps - Standing Knee Flexion Stretch on Step - 1 x daily - 7 x weekly - 3 sets - 10 reps - Standing Gastroc Stretch on Step - 1 x daily - 7 x weekly - 3 sets - 10 reps - Hooklying Clamshell with Resistance - 1 x daily - 7 x weekly - 3 sets - 10 reps [facility] CNTHERAPYon 03-14-2024 CNTHERAPY OT/PT/Speech Visit (PTMDRG) EVERARDO MARES ([id number]) 1965 M Date Time Provider Department 03/14/24 2:00 PM ISATU AGUILERA Date Time Provider Department Center 03/14/2024 2:00 PM [id number] AGUILERA [facility] Reason for Visit: Physical Therapy [503] Primary Visit Diagnosis:Primary osteoarthritis of left knee [M17.12] Allergies As of Date: 03/14/2024 (No Known Allergies) Date Reviewed: 02/28/2024 Reviewed by: Dena Marshall LPN - Fully Assessed Prescriptions as of 03/14/2024 - SYNJARDY XR 12.5-1,000 mg XR tab Take 2 tablets by mouth every morning. - ergocalciferol 50,000 unit capsule (VITAMIN D2, DRISDOL) Take 1 capsule by mouth one time a week. - rosuvastatin (CRESTOR) 20 mg tablet Take 1 tablet by mouth every afternoon. - lisinopril (ZESTRIL) 40 mg tablet - CPAP CPAP supplies. Life time supplies. Request for new DME - HCS. Pt with functioning [employer] AirSense set at [id number] with EPR of 3. Compliant. - glimepiride (AMARYL) 4 mg tablet Take 4 mg by mouth daily with breakfast. - aspirin (JAMES CHEWABLE ASPIRIN) 81 mg chewable tablet Take 81 mg by mouth once daily. Normal [facility] CNTHERAPYon 03-07-2024 CNTHERAPY OT/PT/Speech Visit (PTMDRG) EVERARDO MARES ([id number]) 1965 M Date Time Provider Department 03/07/24 9:15 AM ISATU AGUILERA Date Time Provider Department Center 03/07/2024 9:15 AM [id number] AGUILERA PTMDRG [facility] Reason for Visit: Physical Therapy [503] Primary Visit Diagnosis:Primary osteoarthritis of left knee [M17.12] Allergies As of Date: 03/07/2024 (No Known Allergies) Date Reviewed: 02/28/2024 Reviewed by: Dena Marshall LPN - Fully Assessed Prescriptions as of 03/07/2024 - SYNJARDY XR 12.5-1,000 mg XR tab Take 2 tablets by mouth every morning. - ergocalciferol 50,000 unit capsule (VITAMIN D2, DRISDOL) Take 1 capsule by mouth one time a week. - rosuvastatin (CRESTOR) 20 mg tablet Take 1 tablet by mouth every afternoon. - lisinopril (ZESTRIL) 40 mg tablet - CPAP CPAP supplies. Life time supplies. Request for new DME - HCS. Pt with functioning ResMed AirSense set at [id number] with EPR of 3. Compliant. - glimepiride (AMARYL) 4 mg tablet Take 4 mg by mouth daily with breakfast. - aspirin (JAMES CHEWABLE ASPIRIN) 81 mg chewable tablet Take 81 mg by mouth once daily. Costumed Character: Therapy (PT/OT/Speech/Resp) ID: [id number] 03/07/2024 9:54 AM Author: ISATU AGUILERA Signed by ISATU AGUILERA PT, DPT on 03/07/2024 at 9:54 AM Document text: Program_ID:[id number] Access Code: [email or web address] URL: [email or web address] [employer]/ Date: 03-07-2024 Prepared By: Isatu Aguilera Program Notes Exercises - Sidelying Hip Abduction - 1 x daily - 7 x weekly - 3 sets - 10 reps - Small Range Straight Leg Raise - 1 x daily - 7 x weekly - 3 sets - 10 reps - Supine Hamstring Stretch with Strap - 1 x daily - 7 x weekly - 3 sets - 10 reps - Prone Quadriceps Stretch with Strap - 1 x daily - 7 x weekly - 3 sets - 10 reps - Supine Dynamic Modified Tom Quad and Hip Flexor Dynamic Stretch - 1 x daily - 7 x weekly - 3 sets - 10 reps - Standing Knee Flexion Stretch on Step - 1 x daily - 7 x weekly - 3 sets - 10 reps - Standing Gastroc Stretch on Step - 1 x daily - 7 x weekly - 3 sets - 10 reps ----- [facility] THERAPY NTon 03-07-2024 THERAPY NT HNO ID: [id number] Author: ISATU AGUILERA PT, DPT Service: Physical Therapy Author Type: Physical Therapist Type: Therapy (PT/OT/Speech/Resp) Filed: 03/07/2024 09:54 Note Text: Program_ID:[id number] Access Code: [email or web address] URL: [email or web address] [employer]/ Date: 03-07-2024 Prepared By: Isatu Aguilera Program Notes Exercises - Sidelying Hip Abduction - 1 x daily - 7 x weekly - 3 sets - 10 reps - Small Range Straight Leg Raise - 1 x daily - 7 x weekly - 3 sets - 10 reps - Supine Hamstring Stretch with Strap - 1 x daily - 7 x weekly - 3 sets - 10 reps - Prone Quadriceps Stretch with Strap - 1 x daily - 7 x weekly - 3 sets - 10 reps - Supine Dynamic Elisabeth Santos Quad and Hip Flexor Dynamic Stretch - 1 x daily - 7 x weekly - 3 sets - 10 reps - Standing Knee Flexion Stretch on Step - 1 x daily - 7 x weekly - 3 sets - 10 reps - Standing Gastroc Stretch on Step - 1 x daily - 7 x weekly - 3 sets - 10 reps [facility] CNTHERAPYon 02-29-2024 CNTHERAPY OT/PT/Speech Visit (PTMDRG) EVERARDO MARES ([id number]) 1965 M Date Time Provider Department 02/29/24 10:00 AM ISATU AGUILERA PTMDRG Date Time Provider Department Center 02/29/2024 10:00 AM [id number] AGUILERA PTMDRG [facility] Reason for Visit: PT Eval [747] Patient Education [91] Visit Diagnosis:Primary osteoarthritis of left knee [M17.12] Allergies As of Date: 02/29/2024 (No Known Allergies) Date Reviewed: 02/28/2024 Reviewed by: Dena Marshall LPN - Fully Assessed Prescriptions as of 02/29/2024 - SYNJARDY XR 12.5-1,000 mg XR tab Take 2 tablets by mouth every morning. - ergocalciferol 50,000 unit capsule (VITAMIN D2, DRISDOL) Take 1 capsule by mouth one time a week. - rosuvastatin (CRESTOR) 20 mg tablet Take 1 tablet by mouth every afternoon. - lisinopril (ZESTRIL) 40 mg tablet - CPAP CPAP supplies. Life time supplies. Request for new DME - HCS. Pt with functioning [employer]Med AirSense set at [id number] with EPR of 3. Compliant. - glimepiride (AMARYL) 4 mg tablet Take 4 mg by mouth daily with breakfast. - aspirin (JAMES CHEWABLE ASPIRIN) 81 mg chewable tablet Take 81 mg by mouth once daily. Costumed Character: Therapy (PT/OT/Speech/Resp) ID: [id number] 02/29/2024 10:32 AM Author: ISATU AGUILERA Signed by ISATU AGUILERA PT, DPT on 02/29/2024 at 10:33 AM Document text: Program_ID:[id number] Access Code: [email or web address] URL: [email or web address]://[email or web address]/ Date: 02-29-2024 Prepared By: Isatu Aguilera Program Notes Exercises - Sidelying Hip Abduction - 1 x daily - 7 x weekly - 3 sets - 10 reps - Small Range Straight Leg Raise - 1 x daily - 7 x weekly - 3 sets - 10 reps - Supine Hamstring Stretch with Strap - 1 x daily - 7 x weekly - 3 sets - 10 reps - Seated Table Hamstring Stretch - 1 x daily - 7 x weekly - 3 sets - 10 reps - Standing Hamstring Stretch with Step - 1 x daily - 7 x weekly - 3 sets - 10 reps - Prone Quadriceps Stretch with Strap - 1 x daily - 7 x weekly - 3 sets - 10 reps - Supine Dynamic Modified Tom Quad and Hip Flexor Dynamic Stretch - 1 x daily - 7 x weekly - 3 sets - 10 reps - Supine Heel Slide with Strap - 1 x daily - 7 x weekly - 3 sets - 10 reps ----- [facility] THERAPY NTon 02-29-2024 THERAPY NT HNO ID: [id number] Author: ISATU AGUILERA, PT, DPT Service: Physical Therapy Author Type: Physical Therapist Type: Therapy (PT/OT/Speech/Resp) Filed: 02/29/2024 10:33 Note Text: Program_ID:[id number] Access Code: [email or web address] URL: [email or web address] [place]/ Date: 02-29-2024 Prepared By: Isatu Aguilera Program Notes Exercises - Sidelying Hip Abduction - 1 x daily - 7 x weekly - 3 sets - 10 reps - Small Range Straight Leg Raise - 1 x daily - 7 x weekly - 3 sets - 10 reps - Supine Hamstring Stretch with Strap - 1 x daily - 7 x weekly - 3 sets - 10 reps - Seated Table Hamstring Stretch - 1 x daily - 7 x weekly - 3 sets - 10 reps - Standing Hamstring Stretch with Step - 1 x daily - 7 x weekly - 3 sets - 10 reps - Prone Quadriceps Stretch with Strap - 1 x daily - 7 x weekly - 3 sets - 10 reps - Supine Dynamic Modified Tom Quad and Hip Flexor Dynamic Stretch - 1 x daily - 7 x weekly - 3 sets - 10 reps - Supine Heel Slide with Strap - 1 x daily - 7 x weekly - 3 sets - 10 reps Normal [facility] 02-28-2024 [facility] Office Visit (ORMDNA ) EVERARDO MARES ([id number]) 1965 M Date Time Provider Department 02/28/24 8:00 AM FREDI ORELLANA During your visit today, we recorded the following information about you: Fredi Orellana PA-C 02/28/2024 8:45 AM Signed HISTORY OF PRESENT ILLNESS: Everardo is a 58 year old male. He is here for evaluation of Left knee pain. Patient reports 3 months of left knee pain without known injury or trauma. He has not had any surgeries in this knee. States that the pain is mostly anterior and lateral and he feels like his gait is changing. He is an avid cyclist and has needed to quit riding his bike due to the pain. He also walks approximately 1 hour/day. He states that when he first initiates walking the pain gets better towards the end he does notice some dull aching pain. Denies any mechanical symptoms of buckling, pain, snapping in the knee. Denies any numbness or tingling in the left lower extremity. He is currently taking Motrin which does give him some relief. He is also icing his knee intermittently. No other concerns today. Injury:No PAIN EVALUATION 02/28/2024 0805 Pain Level: 4 Pain Location: Knee-Left Description: Aching;Dull Duration Amount of Time: 3 Duration Units: Months Frequency: Continuous Intervention/Comfort measure: Medication;Reposition ;Relaxation MEDICATIONS Current Outpatient Medications on File Prior to Visit Medication Sig SYNJARDY XR 12.5-1,000 mg XR tab Take 2 tablets by mouth every morning. ergocalciferol 50,000 unit capsule (VITAMIN D2, DRISDOL) Take 1 capsule by mouth one time a week. rosuvastatin (CRESTOR) 20 mg tablet Take 1 tablet by mouth every afternoon. lisinopril (ZESTRIL) 40 mg tablet aspirin (JAMES CHEWABLE ASPIRIN) 81 mg chewable tablet Take 81 mg by mouth once daily. CPAP CPAP supplies. Life time supplies. Request for new DME - [facility]. Pt with functioning ResMed AirSense set at [id number] with EPR of 3. Compliant. (Patient not taking: Reported on 02/28/2024) glimepiride (AMARYL) 4 mg tablet Take 4 mg by mouth daily with breakfast. (Patient not taking: Reported on 02/28/2024) No current facility-administered medications on file prior to visit. ALLERGIES ALLERGIES No Known Allergies PAST MEDICAL HISTORY PAST MEDICAL HISTORY Diagnosis Date Diabetes (HCC) HLD (hyperlipidemia) HTN (hypertension) KRISH (obstructive sleep apnea) PAST SURGICAL HISTORY No past surgical history on file. SOCIAL HISTORY Tobacco: Non-smoker, never smoked FAMILY HISTORY Does a similar condition to what you are experiencing run in your family? No REVIEW OF SYSTEMS: All other systems negative. PHYSICAL EXAM: PE: All other systems deferred. GENERAL: Appears healthy, well-nourished, no deformities. HABITUS: Normal Gait: Normal, the patient did not have trouble getting onto the exam table. Left: Alignment: Varus deformity, Correctable Range of motion is lacking a few degrees secondary to tight hamstrings degrees in extension and 120 degrees of flexion. Extension Lag: < 10 degrees Pain with ROM: Yes Effusion: Mild Tender to the palpation of Lateral joint line Pain with patellar compression: Yes Stability: Anterior/Posterior stable and Varus/Valgus stable Hip Exam: flexion to 100+ degrees, full extension, internal/external rotation adequate, and no pain with log roll Neurovascular Status: Sensation Intact, Moves foot and ankle up AND down, and 2+ dorsalis pedis Strength: 5 Skin: Normal RADIOGRAPHS (personally reviewed): Mild left knee osteoarthritis predominantly in the patellofemoral and medial compartments MRI: None DIAGNOSIS Encounter Diagnosis ICD-10-CM 1. Primary osteoarthritis of left knee M17.12 CONSULT TO PHYSICAL THERAPY PLAN Patient's symptoms are most consistent with left knee osteoarthritis. Treatment options were discussed today. Since this pain is relatively new we will have him continue anti-inflammatories and start physical therapy. Should pain continue or get worse we can always pursue a cortisone injection in the future. Follow-up in 3 to 4 months for reassessment. Will continue to monitor patient for Primary osteoarthritis of left knee (primary encounter diagnosis), patient to schedule visit as per follow up discussed. I spent a total of 30 minutes on the date of the service which included preparing to see the patient, [id number] patient care, completing clinical documentation, obtaining and/or reviewing separately obtained history, performing a medically appropriate examination, counseling and educating the patient/family/caregi gerri, ordering medications, tests, or procedures, communicating with other HCPs (not separately reported), independently interpreting results (not separately reported), communicating results to the patient/family/caregi gerri, and care coordination (not sep (more content not included)... Normal [facility] XR KNEE 4V AP/PA BOTH+LAT/ME R LTon 02-28-2024 XR KNEE 4V AP/PA BOTH+LAT/RA LT * * *Final Report* * * DATE OF EXAM: Feb 28 2024 7:54AM DAYANNA 5202 - XR KNEE 4V AP/PA BOTH+LAT/RA LT / PROCEDURE REASON: [id number] * * * * Physician Interpretation * * * * EXAM(s): XR KNEE 4V AP/PA BOTH+LAT/RA LT EXAM DATE/TIME: 02/28/2024 7:54 AM HISTORY: 58 years old Clinical information: Pain Left knee pain TECHNIQUE: Images: XR KNEE 4V AP/PA BOTH+LAT/RA LT Comparison: None. RESULT: Findings: Mild bony demineralization Right :No fractures or dislocations are seen. Marked narrowing of the medial compartment Left :No fractures or dislocations are seen. Mild narrowing of the medial compartment IMPRESSION: Findings as discussed in results portion of report Refrigerating Engineer: MARGUERITE Transcribe Date/Time: Feb 28 2024 4:09P Dictated by : ROSARIO SAMUELS DO This examination was interpreted and the report reviewed and electronically signed by: ROSARIO SAMUELS DO on Feb 28 2024 4:10PM EST [id number] N [facility] XR Knee - left 4 Viewson IMPRESSION: Findings as discussed in results portion of report Refrigerating Engineer: PSCB Transcribe Date/Time: Feb 28 2024 4:09P Dictated by : ROSARIO SAMUELS DO This examination was interpreted and the report reviewed and electronically signed by: ROSARIO SAMUELS DO on Feb 28 2024 4:10PM [facility] * * *Final Report* * * DATE OF EXAM: Feb 28 2024 7:54AM MDO 5202 - XR KNEE 4V AP/PA BOTH+LAT/RA LT / PROCEDURE REASON: [id number] * * * * Physician Interpretation * * * * EXAM(s): XR KNEE 4V AP/PA BOTH+LAT/RA LT EXAM DATE/TIME: 02/28/2024 7:54 AM HISTORY: 58 years old Clinical information: Pain Left knee pain TECHNIQUE: Images: XR KNEE 4V AP/PA BOTH+LAT/RA LT Comparison: None. RESULT: Findings: Mild bony demineralization Right :No fractures or dislocations are seen. Marked narrowing of the medial compartment Left :No fractures or dislocations are seen. Mild narrowing of the medial compartment [facility] Provider, Chantell Carrera [facility] - 02/28/2024 * * *Final Report* * * DATE OF EXAM: Feb 28 2024 7:54AM MDO 5202 - XR KNEE 4V AP/PA BOTH+LAT/RA LT / PROCEDURE REASON: [id number] * * * * Physician Interpretation * * * * EXAM(s): XR KNEE 4V AP/PA BOTH+LAT/RA LT EXAM DATE/TIME: 02/28/2024 7:54 AM HISTORY: 58 years old Clinical information: Pain Left knee pain TECHNIQUE: Images: XR KNEE 4V AP/PA BOTH+LAT/RA LT Comparison: None. RESULT: Findings: Mild bony demineralization Right :No fractures or dislocations are seen. Marked narrowing of the medial compartment Left :No fractures or dislocations are seen. Mild narrowing of the medial compartment IMPRESSION IMPRESSION: Findings as discussed in results portion of report Refrigerating Engineer: MARGUERITE Transcribe Date/Time: Feb 28 2024 4:09P Dictated by : ROSARIO SAMUELS DO This examination was interpreted and the report reviewed and electronically signed by: ROSARIO SAMUELS DO on Feb 28 2024 4:10PM [facility] Radiology Study observation (narrative) Melody Terrazas XR Knee - left 4 ViewsOrdere d By: [facility] Provider on 02-28-2024 [facility] Metabolic Prof ilon 02-01-2024 Albumin [Mass/Vol] 3.8 g/dL Normal 3.2-5.0 [facility] Comment on above: Performed By: #### L 500.4050, L506.1000, L501.9985, L502.0250 #### [facility] [address] [place], [address] Albumin/Globulin [Mass ratio] 1.0 {ratio} Normal 0.9-2.4 [facility] Comment on above: Performed By: #### L 500.4050, L506.1000, L501.9985, L502.0250 #### [facility] [address] [place], [address] ALK P 66 U/L Normal 45-117 [facility] Comment on above: Performed By: #### L 500.4050, L506.1000, L501.9985, L502.0250 #### [facility] [address] [place], [address] ALT [Catalytic activity/Vol] 20 U/L Normal 16-61 [facility] Comment on above: Performed By: #### L 500.4050, L506.1000, L501.9985, L502.0250 #### [facility] [address] [place], [address] AST [Catalytic activity/Vol] 11 U/L Low 15-37 [facility] Comment on above: Performed By: #### L 500.4050, L506.1000, L501.9985, L502.0250 #### [facility] [address] [place], [address] Bilirubin [Mass/Vol] 0.40 mg/dL Normal 0.20-1.00 [facility] Comment on above: Result Comment: For patients on eltrombopag therapy, use of Dimension Wh[place]arral TBIL is not recommended. Performed By: #### L 500.4050, L506.1000, L501.9985, L502.0250 #### [facility] [address] [place], [address] BUN/CRE 17.6 RATIO Normal 10-20 [facility] Comment on above: Performed By: #### L 500.4050, L506.1000, L501.9985, L502.0250 #### [facility] [address] [place], [address] CA,Total 9.3 mg/dL Normal 8.5-10.1 [facility] Comment on above: Performed By: #### L 500.4050, L506.1000, L501.9985, L502.0250 #### [facility] [address] [place], [address] Chloride [Moles/Vol] 107 mmol/L Normal 98-107 [facility] Comment on above: Performed By: #### L 500.4050, L506.1000, L501.9985, L502.0250 #### [facility] [address] [place], [address] CO2 [Moles/Vol] 25.0 mmol/L Normal 21.0-32.0 [facility] Comment on above: Performed By: #### L 500.4050, L506.1000, L501.9985, L502.0250 #### [facility] [address] [place], [address] Creatinine [Mass/Vol] 1.02 mg/dL Normal 0.70-1.30 [facility] Comment on above: Result Comment: The validity of the calculated GFR GFRAA in patients over 70 years has not been determined. Clinical correlation is essential. Performed By: #### L 500.4050, L506.1000, L501.9985, L502.0250 #### [facility] [address] [place], [address] EST GFR - AA 97 mL/min Normal >60 [facility] Comment on above: Result Comment: Afri can [place] GFR Calc Performed By: #### L 500.4050, L506.1000, L501.9985, L502.0250 #### [facility] [address] [place], [address] GAP 6 Normal 5-15 [facility] Comment on above: Performed By: #### L 500.4050, L506.1000, L501.9985, L502.0250 #### [facility] [address] [place], [address] GFR/1.73 sq M.predicted among non-blacks MDRD (S/P/Bld) [Vol rate/Area] 80 mL/min/{1.73_m2} Normal >60 [facility] Comment on above: Result Comment: Non- GFR Calc Performed By: #### L 500.4050, L506.1000, L501.9985, L502.0250 #### [facility] [address] [place], [address] Globulin (S) [Mass/Vol] 3.7 g/dL Normal 2.2-4.2 [facility] Comment on above: Performed By: #### L 500.4050, L506.1000, L501.9985, L502.0250 #### [facility] [address] [place], [address] Glucose [Mass/Vol] 197 mg/dL High 74-106 [facility] Comment on above: Result Comment: Fast ing Glucose result greater than or equal to 126 mg/dL suggests DIABETES MELLITUS per A.D.A. criteria. Performed By: #### L 500.4050, L506.1000, L501.9985, L502.0250 #### [facility] [address] [place], [address] Potassium [Moles/Vol] 4.3 mmol/L Normal 3.5-5.1 [facility] Comment on above: Performed By: #### L 500.4050, L506.1000, L501.9985, L502.0250 #### [facility] [address] [place], [address] Sodium [Moles/Vol] 138 mmol/L Normal 136-145 [facility] Comment on above: Performed By: #### L 500.4050, L506.1000, L501.9985, L502.0250 #### [facility] [address] [place], [address] T PROT 7.5 g/dL Normal 6.4-8.2 [facility] Comment on above: Performed By: #### L 500.4050, L506.1000, L501.9985, L502.0250 #### [facility] [address] [place], [address] Urea nitrogen [Mass/Vol] 18 mg/dL Normal 7-18 [facility] Comment on above: Performed By: #### L 500.4050, L506.1000, L501.9985, L502.0250 #### [facility] [address] [place], [address] Hemoglobin A1con 02-01-2024 HbA1c (Bld) [Mass fraction] 7.3 % High 3.8-5.6 [facility] Comment on above: Result Comment: Norm al < 5.7 % Prediabetic 5.7 - 6.4 % Diabetic >or= 6.5 % Please note range changes. Performed By: #### L 500.4050, L506.1000, L501.9985, L502.0250 #### [facility] [address] [place], [address] Microalb:Creat Ratio,Random URon 02-01-2024 Creatinine [Mass/Vol] 38.30 mg/dL Normal NO RANGE EST. [facility] Comment on above: Performed By: #### L 500.4050, L506.1000, L501.9985, L502.0250 #### [facility] [address] [place], [address] MALB:CRE 14.6 mg/g CRE Normal <30 mg/g CRE [facility] Comment on above: Performed By: #### L 500.4050, L506.1000, L501.9985, L502.0250 #### [facility] [address] [place], [address] MICROALBUMIN,UR 5.6 mg/L Normal NO RANGE EST. [facility] Comment on above: Performed By: #### L 500.4050, L506.1000, L501.9985, L502.0250 #### [facility] [address] [place], [address] Vitamin D,25 Hydroxyon 01-31 Vitamin D 25-OH 24.0 ng/mL Normal [facility] Comment on above: Result Comment: Dorota min D 25(OH) Status Range Deficiency <20 ng/mL (50nmol/L) Insufficiency 20 - 30 ng/mL (50 - 75 nmol/L) Sufficiency 30 - 100 ng/mL (75 - 250 nmol/L) Toxicity >100 ng/mL (>250 nmol/L) Performed By: #### L 500.4050, L506.1000, L501.9985, L502.0250 #### [facility] [address] [place], [address] Comprehensive Metabolic Prof ilon 10-30-2023 Albumin [Mass/Vol] 3.7 g/dL Normal 3.2-5.0 [facility] Comment on above: Performed By: #### L 501.9520, L500.4050, L500.4100 #### [facility] [address] [place], [address] Albumin/Globulin [Mass ratio] 0.9 {ratio} Normal 0.9-2.4 [facility] Comment on above: Performed By: #### L 501.9520, L500.4050, L500.4100 #### [facility] [address] [place], [address] ALK P 66 U/L Normal 45-117 [facility] Comment on above: Performed By: #### L 501.9520, L500.4050, L500.4100 #### [facility] [address] [place], [address] ALT [Catalytic activity/Vol] 22 U/L Normal 16-61 [facility] Comment on above: Performed By: #### L 501.9520, L500.4050, L500.4100 #### [facility] [address] [place], [address] AST [Catalytic activity/Vol] 18 U/L Normal 15-37 [facility] Comment on above: Performed By: #### L 501.9520, L500.4050, L500.4100 #### [facility] [address] [place], [address] Bilirubin [Mass/Vol] 0.30 mg/dL Normal 0.20-1.00 [facility] Comment on above: Result Comment: For patients on eltrombopag therapy, use of Dimension [place] TBIL is not recommended. Performed By: #### L 501.9520, L500.4050, L500.4100 #### [facility] [address] [place], [address] BUN/CRE 17.1 RATIO Normal 10-20 [facility] Comment on above: Performed By: #### L 501.9520, L500.4050, L500.4100 #### [facility] [address] [place], [address] CA,Total 9.3 mg/dL Normal 8.5-10.1 [facility] Comment on above: Performed By: #### L 501.9520, L500.4050, L500.4100 #### [facility] [address] [place], [address] Chloride [Moles/Vol] 105 mmol/L Normal 98-107 [facility] Comment on above: Performed By: #### L 501.9520, L500.4050, L500.4100 #### [facility] [address] [place], [address] CO2 [Moles/Vol] 26.0 mmol/L Normal 21.0-32.0 [facility] Comment on above: Performed By: #### L 501.9520, L500.4050, L500.4100 #### [facility] [address] [place], [address] Creatinine [Mass/Vol] 0.99 mg/dL Normal 0.70-1.30 [facility] Comment on above: Result Comment: The validity of the calculated GFR GFRAA in patients over 70 years has not been determined. Clinical correlation is essential. Performed By: #### L 501.9520, L500.4050, L500.4100 #### [facility] [address] [place], [address] EST GFR - AA 100 mL/min Normal >60 [facility] Comment on above: Result Comment: Afri can [place] GFR Calc Performed By: #### L 501.9520, L500.4050, L500.4100 #### [facility] [address] [place], [address] GAP 6 Normal 5-15 [facility] Comment on above: Performed By: #### L 501.9520, L500.4050, L500.4100 #### [facility] [address] [place], [address] GFR/1.73 sq M.predicted among non-blacks MDRD (S/P/Bld) [Vol rate/Area] 82 mL/min/{1.73_m2} Normal >60 [facility] Comment on above: Result Comment: Non- GFR Calc Performed By: #### L 501.9520, L500.4050, L500.4100 #### [facility] [address] [place], [address] Globulin (S) [Mass/Vol] 4.0 g/dL Normal 2.2-4.2 [facility] Comment on above: Performed By: #### L 501.9520, L500.4050, L500.4100 #### [facility] [address] [place], [address] Glucose [Mass/Vol] 137 mg/dL High 74-106 [facility] Comment on above: Result Comment: Fast ing Glucose result greater than or equal to 126 mg/dL suggests DIABETES MELLITUS per A.D.A. criteria. Performed By: #### L 501.9520, L500.4050, L500.4100 #### [facility] [address] [place], [address] Potassium [Moles/Vol] 4.4 mmol/L Normal 3.5-5.1 [facility] Comment on above: Performed By: #### L 501.9520, L500.4050, L500.4100 #### [facility] [address] [place], [address] Sodium [Moles/Vol] 137 mmol/L Normal 136-145 [facility] Comment on above: Performed By: #### L 501.9520, L500.4050, L500.4100 #### [facility] [address] [place], [address] T PROT 7.7 g/dL Normal 6.4-8.2 [facility] Comment on above: Performed By: #### L 501.9520, L500.4050, L500.4100 #### [facility] [address] [place], [address] Urea nitrogen [Mass/Vol] 17 mg/dL Normal 7-18 [facility] Comment on above: Performed By: #### L 501.9520, L500.4050, L500.4100 #### [facility] [address] [place], [address] Lipid Profileon 10-30-2023 Cholesterol [Mass/Vol] 125 mg/dL Normal [address] [facility] Comment on above: Result Comment: <200 mg/dL Desirable 200-240 mg/dL Borderline >240 mg/dL High Risk Performed By: #### L 501.9520, L500.4050, L500.4100 #### [facility] [address] [place], [address] Cholesterol in HDL [Mass/Vol] 38 mg/dL Low [facility] Comment on above: Result Comment: The drugs N-Acetylcysteine and Metamizole may falsely depress this assay. Reference Range HDL <40 mg/dL Low HDL Cholesterol HDL >or= 60 mg/dL High HDL Cholesterol Performed By: #### L 501.9520, L500.4050, L500.4100 #### [facility] [address] [place], [address] Cholesterol in LDL [Mass/Vol] 62 mg/dL Normal 0-130 [facility] Comment on above: Performed By: #### L 501.9520, L500.4050, L500.4100 #### [facility] [address] [place], [address] Cholesterol in VLDL [Mass/Vol] 25 mg/dL Normal 5-40 [facility] Comment on above: Performed By: #### L 501.9520, L500.4050, L500.4100 #### [facility] [address] [place], [address] Triglyceride [Mass/Vol] 123 mg/dL Normal [facility] Comment on above: Result Comment: The drugs N-Acetylcysteine and Metamizole may falsely depress this assay. Serum Triglycerides Reference Interval Normal <150 mg/dL Borderline high 150 - 199 mg/dL High 200 - 499 mg/dL Very High > or = 500 mg/dL Performed By: #### L 501.9520, L500.4050, L500.4100 #### [facility] [address] [place], [address] Thyroid Stim Hormone (TSH)on 10-30-2023 TSH 1.51 uIU/mL Normal 0.358-3.74 [facility] Comment on above: Performed By: #### L 501.9520, L500.4050, L500.4103 #### [facility] [address] [facility] [place], [address] Basophil percentageOrdered B y: Victorino Mckeon on 06-22-2023 Bilirubin [Mass/Vol] 0.60 mg/dL 0.20-1.00 [facility] Comment on above: For patients on eltr ombopag therapy, use of Dimension [place] TBIL is not recommended. Chloride [Moles/Vol] 102 mmol/L 98-107 [facility] Cholesterol [Mass/Vol] 171 mg/dL <[address] [facility] Comment on above: <200 mg/dL Desirable 200-240 mg/dL Borderline >240 mg/dL High Risk Glucose [Mass/Vol] 134 mg/dL 74-106 [facility] Comment on above: Fasting Glucose resu lt greater than or equal to 126 mg/dL suggests DIABETES MELLITUS per A.D.A. criteria. Potassium [Moles/Vol] 4.5 mmol/L 3.5-5.1 [facility] Protein [Mass/Vol] 8.0 g/dL 6.4-8.2 [facility] Sodium [Moles/Vol] 134 mmol/L 136-145 [facility] Triglyceride [Mass/Vol] 183 mg/dL <199 [facility] Comment on above: The drugs N-Acetylcy steine and Metamizole may falsely depress this assay.Serum Triglycerides Reference Interval Normal <150 mg/dL Borderline high 150 - 199 mg/dL High 200 - 499 mg/dL Very High > or = 500 mg/dL Comprehensive Metabolic Prof macario 06-22-2023 Albumin [Mass/Vol] 4.0 g/dL Normal 3.2-5.0 [facility] Comment on above: Performed By: #### L 502.0250, L500.4100, L500.4050 #### [facility] [address] [place], [address] Albumin/Globulin [Mass ratio] 1.0 {ratio} Normal 0.9-2.4 [facility] Comment on above: Performed By: #### L 502.0250, L500.4100, L500.4050 #### [facility] [address] [place], [address] ALK P 85 U/L Normal 45-117 [facility] Comment on above: Performed By: #### L 502.0250, L500.4100, L500.4050 #### [facility] [address] [place], [address] ALT [Catalytic activity/Vol] 23 U/L Normal 16-61 [facility] Comment on above: Performed By: #### L 502.0250, L500.4100, L500.4050 #### [facility] [address] [place], [address] AST [Catalytic activity/Vol] 18 U/L Normal 15-37 [facility] Comment on above: Performed By: #### L 502.0250, L500.4100, L500.4050 #### [facility] [address] [place], [address] Bilirubin [Mass/Vol] 0.60 mg/dL Normal 0.20-1.00 [facility] Comment on above: Result Comment: For patients on eltrombopag therapy, use of Dimension [place] TBIL is not recommended. Performed By: #### L 502.0250, L500.4100, L500.4050 #### [facility] [address] [place], [address] BUN/CRE 19.3 RATIO Normal 10-20 [facility] Comment on above: Performed By: #### L 502.0250, L500.4100, L500.4050 #### [facility] [address] [place], [address] CA,Total 9.5 mg/dL Normal 8.5-10.1 [facility] Comment on above: Performed By: #### L 502.0250, L500.4100, L500.4050 #### [facility] [address] [place], [address] Chloride [Moles/Vol] 102 mmol/L Normal 98-107 [facility] Comment on above: Performed By: #### L 502.0250, L500.4100, L500.4050 #### [facility] [address] [place], [address] CO2 [Moles/Vol] 27.0 mmol/L Normal 21.0-32.0 [facility] Comment on above: Performed By: #### L 502.0250, L500.4100, L500.4050 #### [facility] [address] [place], [address] Creatinine [Mass/Vol] 0.88 mg/dL Normal 0.70-1.30 [facility] Comment on above: Result Comment: The validity of the calculated GFR GFRAA in patients over 70 years has not been determined. Clinical correlation is essential. Performed By: #### L 502.0250, L500.4100, L500.4050 #### [facility] [address] [place], [address] EST GFR - AA 115 mL/min Normal >60 [facility] Comment on above: Result Comment: Afri can [place] GFR Calc Performed By: #### L 502.0250, L500.4100, L500.4050 #### [facility] [address] [place], [address] GAP 5 Normal 5-15 [facility] Comment on above: Performed By: #### L 502.0250, L500.4100, L500.4050 #### [facility] [address] [place], [address] GFR/1.73 sq M.predicted among non-blacks MDRD (S/P/Bld) [Vol rate/Area] 95 mL/min/{1.73_m2} Normal >60 [facility] Comment on above: Result Comment: Non- GFR Calc Performed By: #### L 502.0250, L500.4100, L500.4050 #### [facility] [address] [place], [address] Globulin (S) [Mass/Vol] 4.0 g/dL Normal 2.2-4.2 [facility] Comment on above: Performed By: #### L 502.0250, L500.4100, L500.4050 #### [facility] [address] [place], [address] Glucose [Mass/Vol] 134 mg/dL High 74-106 [facility] Comment on above: Result Comment: Fast ing Glucose result greater than or equal to 126 mg/dL suggests DIABETES MELLITUS per A.D.A. criteria. Performed By: #### L 502.0250, L500.4100, L500.4050 #### [facility] [address] [place], [address] Potassium [Moles/Vol] 4.5 mmol/L Normal 3.5-5.1 [facility] Comment on above: Performed By: #### L 502.0250, L500.4100, L500.4050 #### [facility] [address] [place], [address] Sodium [Moles/Vol] 134 mmol/L Low 136-145 [facility] Comment on above: Performed By: #### L 502.0250, L500.4100, L500.4050 #### [facility] [address] [place], [address] T PROT 8.0 g/dL Normal 6.4-8.2 [facility] Comment on above: Performed By: #### L 502.0250, L500.4100, L500.4050 #### [facility] [address] [place], [address] Urea nitrogen [Mass/Vol] 17 mg/dL Normal 7-18 [facility] Comment on above: Performed By: #### L 502.0250, L500.4100, L500.4050 #### [facility] [address] [place], [address] Laboratory - Chemistry and C hemistry - challengeOrdered By: Victorino Mckeon on 06-22-2023 Albumin/Globulin [Mass ratio] 1.0 {ratio} 0.9-2.4 [facility] ALP [Catalytic activity/Vol] 85 U/L 45-117 [facility] ALT [Catalytic activity/Vol] 23 U/L 16-61 [facility] Cholesterol in HDL [Mass/Vol] 40 mg/dL >40 [facility] Comment on above: The drugs N-Acetylcy steine and Metamizole may falsely depress this assay. Reference Range HDL <40 mg/dL Low HDL Cholesterol HDL >or= 60 mg/dL High HDL Cholesterol Cholesterol in LDL [Mass/Vol] 94 mg/dL 0-130 [facility] CO2 [Moles/Vol] 27.0 mmol/L 21.0-32.0 [facility] Globulin (S) [Mass/Vol] 4.0 g/dL 2.2-4.2 [facility] Urea nitrogen/Creatinine [Mass ratio] 19.3 mg/mg 10- [facility] Lipid Profileon 06-22-2023 Cholesterol [Mass/Vol] 171 mg/dL Normal [address] [facility] Comment on above: Result Comment: <200 mg/dL Desirable 200-240 mg/dL Borderline >240 mg/dL High Risk Performed By: #### L 502.0250, L500.4100, L500.4050 #### [facility] [address] [place], [address] Cholesterol in HDL [Mass/Vol] 40 mg/dL Normal [facility] Comment on above: Result Comment: The drugs N-Acetylcysteine and Metamizole may falsely depress this assay. Reference Range HDL <40 mg/dL Low HDL Cholesterol HDL >or= 60 mg/dL High HDL Cholesterol Performed By: #### L 502.0250, L500.4100, L500.4050 #### [facility] [address] [place], [address] Cholesterol in LDL [Mass/Vol] 94 mg/dL Normal 0-130 [facility] Comment on above: Performed By: #### L 502.0250, L500.4100, L500.4050 #### [facility] [address] [place], [address] Cholesterol in VLDL [Mass/Vol] 37 mg/dL Normal 5-40 [facility] Comment on above: Performed By: #### L 502.0250, L500.4100, L500.4050 #### [facility] [address] [place], [address] Triglyceride [Mass/Vol] 183 mg/dL Normal [facility] Comment on above: Result Comment: The drugs N-Acetylcysteine and Metamizole may falsely depress this assay. Serum Triglycerides Reference Interval Normal <150 mg/dL Borderline high 150 - 199 mg/dL High 200 - 499 mg/dL Very High > or = 500 mg/dL Performed By: #### L 502.0250, L500.4100, L500.4050 #### [facility] [address] [place], [address] Microalb:Creat Ratio,Random URon 06-22-2023 Creatinine [Mass/Vol] 74.00 mg/dL Normal NO RANGE EST. [facility] Comment on above: Performed By: #### L 502.0250, L500.4100, L500.4050 #### [facility] [address] [place], [address] MALB:CRE 32.3 mg/g CRE High <30 mg/g CRE [facility] Comment on above: Performed By: #### L 502.0250, L500.4100, L500.4050 #### [facility] [address] [place], [address] MICROALBUMIN,UR 23.9 mg/L Normal NO RANGE EST. [facility] Comment on above: Performed By: #### L 502.0250, L500.4100, L500.4050 #### [facility] [address] [place], [address] No Panel InformationOrdered By: Victorino Mckeon on 06-22-2023 Estimated GFR (MDRD) Amer 115 mL/min >60 [facility] Comment on above: GFR Calc Estimated GFR (MDRD) Non-Af Amer 95 mL/min >60 [facility] Comment on above: Non- GFR Calc Urine Microalbumin/Creatinine Ratio 32.3 mg/g CRE <30 [facility] VLDL Cholesterol 37 mg/dL 5-40 [facility] Serum or plasma calcium jose urement (mass/volume)Ordered By: Victorino Mckeon on 06-22-2023 Calcium [Mass/Vol] 9.5 mg/dL 8.5-10.1 [facility] Serum or plasma creatinine m easurement (mass/volume)Ordered By: Victorino Mckeon on 06-22-2023 Creatinine [Mass/Vol] 0.88 mg/dL 0.70-1.30 [facility] Comment on above: The validity of the calculated GFR & GFRAA in patients over 70 years has not been determined. Clinical correlation is essential. Serum or plasma urea nitroge n measurement (mass/volume)Ordered By: Victorino Mckeon on 06-22-2023 Urea nitrogen [Mass/Vol] 17 mg/dL 7-18 [facility] Thin prep Papanicolaou smear with manual screeningOrdered By: Victorino Mckeon on 06-22-2023 Thin prep Papanicolaou smear with manual screening 4.0 g/dL 3.2-5.0 [facility] Thin prep Papanicolaou smear with manual screening 18 U/L 15-37 [facility] Thin prep Papanicolaou smear with manual screening 5 5-15 [facility] Thin prep Papanicolaou smear with manual screening 23.9 mg/L NO RANGE EST. [facility] Urine creatinine measurement (mass/volume)Ordered By: Victorino Mckeon on 06-22-2023 Creatinine (U) [Mass/Vol] 74.00 mg/dL NO RANGE EST. [facility] Basophil percentageOrdered B y: Dr. Mckeon on 08-17-2022 Chloride [Moles/Vol] 105 mmol/L 98-107 [facility] Cholesterol [Mass/Vol] 143 mg/dL <[address] [facility] Comment on above: <200 mg/dL Desirable 200-240 mg/dL Borderline >240 mg/dL High Risk Glucose [Mass/Vol] 126 mg/dL 74-106 [facility] Comment on above: Fasting Glucose resu lt greater than or equal to 126 mg/dL suggests DIABETES MELLITUS per A.D.A. criteria. Potassium [Moles/Vol] 4.9 mmol/L 3.5-5.1 [facility] Sodium [Moles/Vol] 137 mmol/L 136-145 [facility] Triglyceride [Mass/Vol] 108 mg/dL <199 [facility] Comment on above: The drugs N-Acetylcy steine and Metamizole may falsely depress this assay.Serum Triglycerides Reference Interval Normal <150 mg/dL Borderline high 150 - 199 mg/dL High 200 - 499 mg/dL Very High > or = 500 mg/dL Laboratory - Chemistry and C hemistry - challengeOrdered By: Dr. Mckeon on 05-24-2023 CO2 [Moles/Vol] 25.0 mmol/L 21.0-32.0 [facility] Urea nitrogen/Creatinine [Mass ratio] 16.0 mg/mg 10-20 [facility] No Panel InformationOrdered By: Dr. Mckeon on 08-17-2022 Estimated GFR (MDRD) Amer 107 mL/min >60 [facility] Comment on above: GFR Calc Estimated GFR (MDRD) Non-Af Amer 89 mL/min >60 [facility] Comment on above: Non- GFR Calc Serum or plasma calcium jose urement (mass/volume)Ordered By: Dr. Mckeon on 08-17-2022 Calcium [Mass/Vol] 9.5 mg/dL 8.5-10.1 [facility] Serum or plasma cholesterol in HDL measurement (mass/volume)Ordered By: Dr. Mckeon on 08-17-2022 Cholesterol in HDL [Mass/Vol] 34 mg/dL >40 [facility] Comment on above: The drugs N-Acetylcy steine and Metamizole may falsely depress this assay. Reference Range HDL <40 mg/dL Low HDL Cholesterol HDL >or= 60 mg/dL High HDL Cholesterol Serum or plasma cholesterol in VLDL measurement (mass/volume)Ordered By: Dr. Mckeon on 08-17-2022 Cholesterol in VLDL [Mass/Vol] 22 mg/dL 5-40 [facility] Serum or plasma creatinine m easurement (mass/volume)Ordered By: Dr. Mckeon on 08-17-2022 Creatinine [Mass/Vol] 0.94 mg/dL 0.70-1.30 [facility] Comment on above: The validity of the calculated GFR & GFRAA in patients over 70 years has not been determined. Clinical correlation is essential. Serum or plasma low density lipoprotein (LDL) cholesterol measurement (mass/volume)Ordered By: Dr. Mckeon on 08-17-2022 Cholesterol in LDL [Mass/Vol] 87 mg/dL 0-130 [facility] Serum or plasma urea nitroge n measurement (mass/volume)Ordered By: Dr. Mckeon on 08-17-2022 Urea nitrogen [Mass/Vol] 15 mg/dL 7-18 [facility] Thin prep Papanicolaou smear with manual screeningOrdered By: Dr. Mckeon on 08-17-2022 Thin prep Papanicolaou smear with manual screening 7 5-15 [facility] Basophil percentageon 2021 Chloride [Moles/Vol] 104 mmol/L 98-107 [facility]: Cholesterol [Mass/Vol] 154 mg/dL <200 [facility] Work Phone: Comment on above: <200 mg/dL Desirable 200-240 mg/dL Borderline >240 mg/dL High Risk Glucose [Mass/Vol] 101 mg/dL 74-106 [facility] Work Phone: Comment on above: Fasting Glucose resu lt from 100 to 125 mg/dL suggests IMPAIRED HOMEOSTASIS per A.D.A. criteria. Potassium [Moles/Vol] 4.6 mmol/L 3.5-5.1 [facility] Work Phone: Sodium [Moles/Vol] 136 mmol/L 136-145 [facility] Work Phone: Triglyceride [Mass/Vol] 152 mg/dL <199 [facility] Work Phone: Comment on above: The drugs N-Acetylcy steine and Metamizole may falsely depress this assay.Serum Triglycerides Reference Interval Normal <150 mg/dL Borderline high 150 - 199 mg/dL High 200 - 499 mg/dL Very High > or = 500 mg/dL Laboratory - Chemistry and C hemistry - challengeon 10-20-2021 CO2 [Moles/Vol] 25.0 mmol/L 21.0-32.0 [facility] Work Phone: Urea nitrogen/Creatinine [Mass ratio] 25.7 mg/mg 10-20 [facility] Work Phone: No Panel Informationon 10-20 Estimated GFR (MDRD) Amer 99 mL/min >60 [facility] Work Phone: Comment on above: GFR Calc Estimated GFR (MDRD) Non-Af Amer 81 mL/min >60 [facility] Work Phone: Comment on above: Non- GFR Calc Serum or plasma calcium jose urement (mass/volume)on 10-20-2021 Calcium [Mass/Vol] 9.7 mg/dL 8.5-10.1 [facility] Work Phone: Serum or plasma cholesterol in HDL measurement (mass/volume)on 10-20-2021 Cholesterol in HDL [Mass/Vol] 33 mg/dL >40 [facility] Work Phone: Comment on above: The drugs N-Acetylcy steine and Metamizole may falsely depress this assay. Reference Range HDL <40 mg/dL Low HDL Cholesterol HDL >or= 60 mg/dL High HDL Cholesterol Serum or plasma cholesterol in VLDL measurement (mass/volume)on 10-20-2021 Cholesterol in VLDL [Mass/Vol] 30 mg/dL 5-40 [facility] Work Phone: Serum or plasma creatinine m easurement (mass/volume)on 10-20-2021 Creatinine [Mass/Vol] 1.01 mg/dL 0.70-1.30 [facility] Work Phone: Comment on above: The validity of the calculated GFR & GFRAA in patients over 70 years has not been determined. Clinical correlation is essential. Serum or plasma low density lipoprotein (LDL) cholesterol measurement (mass/volume)on 10-20-2021 Cholesterol in LDL [Mass/Vol] 91 mg/dL 0-130 [facility] Work Phone: Serum or plasma urea nitroge n measurement (mass/volume)on 10-20-2021 Urea nitrogen [Mass/Vol] 26 mg/dL 7-18 [facility] Work Phone: Thin prep Papanicolaou smear with manual screeningon 10-20-2021 Thin prep Papanicolaou smear with manual screening 7 5-15 [facility] Work Phone: PROGRESSon 06-20-2019 PROGRESS HNO ID: [id number] Author: Gustavo Awad Jr. Service: ? Author Type: Physician Type: Progress Notes Filed: 06/20/2019 12:19 PM Note Text: ESTABLISHED PATIENT VISIT With the current coronavirus outbreak, we want to minimize the risk of exposing patients to this illness. I have reviewed this patient's chart and, per patient's request for an opportunity to be seen without having to present to the office, feel appropriate that this appointment be made a virtual visit. For this virtual visit, the patient has been identified by name and (MRN and photo identification as well if available). Due to technical difficulties with video, visit became a telephone visit. (patient and physician on phone line) Consent for visit received from patient. HISTORY OF PRESENT ILLNESS: Everardo Mares is a 54 year old male, with a past medical history significant for and per my last office note of 08/04/17: Obstructive sleep apnea (adult) (pediatric) - ICD9: 327.23, ICD10: G47.33 (primary diagnosis) Patient with OSAS likely secondary to obesity and crowded airway as well as family history of OSAS. Reviewed with patient his prior PSG and CPAP study reports. He is tolerating therapy at this time and showing compliance with objective evidence from PAP downloads supporting such. Encouraged continued compliance. By history melvine clearly has mask fit issues with complaints of leaks (although not noted on downlaod reports) and discomfort with patient having to pull mask against face much tighter than would be expected given current pressure. Thus mask fitting has been ordered at this time. In addition, although PAP download shows normalized AHI, this is inconsistent with findings from PAP titration that would indicate that the setting of 60stB0W did not normalize the patient's AHI. Plan as follows: -Ordering CPAP mask fit and new mask. Once mask leak and fitting issues resolved, then will empirically increase CPAP setting to 13 cmH2O to see if any subjective difference in wakefulness and sleep. ? Obesity, unspecified classification, unspecified obesity type, unspecified whether serious comorbidity present - ICD9: 278.00, ICD10: E66.9 Encouraged weight loss. ? Patient would like to change DME to [facility]. Download available. He feels that he is doing well. He has been compliant except the past month using a bit under 4 hours. Biggest problem right now is that he has a mask that is 3 months old that just is not feeling comfortable. States face sensitive. He wakes at 2AM, and if any irritation he takes the mask off. Pressure feels ok. No significant mask leaks (subjective). On averaging he is getting about 7-8 hours of sleep. If he does not get a good night with the mask he does feel a bit more tired. No parasomnias. No insomnia. No RLS symptoms. ESS=09/17 PAP download reviewed. Set at 11 cmH2O. Avg hours used daily is 4 hours and 42 minutes. Leak is 9.5L/min. AHI is 0.2. REVIEW OF SYSTEMS GENERAL:No weight loss, malaise or fevers. HEENT:Negative for frequent or significant headaches, No changes in hearing or vision, no nose bleeds or other nasal problems NECK:Negative for lumps, goiter, pain and significant neck swelling RESPIRATORY: Negative for cough, wheezing or shortness of breath. CARDIOVASCULAR: Negative for chest pain, leg swelling or palpitations. GASTROINTESTINAL: Negative for abdominal discomfort, blood in stools or black stools or change in bowel habits GENITOURINARY: No history of dysuria, frequency or incontinence MUSCULOSKELETAL: Negative for joint pain or swelling, back pain or muscle pain. NEUROLOGIC:Negative for focal numbness or weakness, headaches and dizziness or syncope, vision changes, speech/languag changes - EXCEPT that as per HPI above. SKIN:Negative for lesions, rash, and itching. MEDICATIONS: metFORMIN (GLUCOPHAGE) 1,000 mg tablet Take 1,000 mg by mouth twice daily with meals. pravastatin (PRAVACHOL) 40 mg tablet Take 40 mg by mouth once daily. glimepiride (AMARYL) 4 mg tablet Take 4 mg by mouth daily with breakfast. lisinopril (ZESTRIL, PRINIVIL) 5 mg tablet Take 5 mg by mouth once daily. aspirin (JAMES CHEWABLE ASPIRIN) 81 mg chewable tablet Take 81 mg by mouth once daily. HISTORIES Past Medical History DM (last A1c = 7.0) HTN HLD KRISH SOCIAL HISTORY No tob or ETOH use. PHYSICAL EXAMINATION .Pulse 76, height 177.8 cm (5' 10), weight 123.8 kg (273 lb). Body mass index is 39.17 kg/m?. GENERAL EXAM: General appearance: NAD, pleasant (audible). Lungs: No audible cough or SOB. CV: RRR nl S1, S2, no murmurs. No carotid bruits. NEUROLOGICAL EXAM: General: Awake, alert, oriented x3 (person,place,time), speech fluent, no dysarthria; comprehension, naming, repetition intact. Assessment and Plan: ASSESSMENT/PLAN: 1. KRISH on CPAP - ICD9: 327.23, V46.8, ICD10: G47.33, Z99.89 (primary diagnosis) 2. Class 2 obesity with body mass index (BMI) of 39.0 to 39.9 in adult, unspecified obesity type, unspecified whether serious comorbidity present - ICD9: 278.00, V85.39, ICD10: E66.9, Z68.39 Patient doing well on PAP. Confirmed objectively by download. Decreased nightly use (hours) over recent weeks but due to skin sensitivity. Discussed with patient REMzz's or other similar product to provide barrier between mask and skin. He will also get a new mask liner from DME. Reminded need to replace and clean equipment regularly. Advised no driving or operating machinery if sleepy. Encouraged weight loss. Reminded patient of his medical conditions (HTN, DM...) that could be exacerbated by not treating KRISH. Also order will be placed to see if patient can change DME per patient request - would like to go to [facility] as that is where goes for her equipment. Gustavo Awad MD I spent 15 minutes in the visit, with more than 50% of the total [id number] time of the visit in counseling / coordination of care. Normal [facility] Encounters Encounter Date Encounter Type Care Provider Facility Start: 04-04-2024 End: 04-04-2024 Patient encounter procedure Isatu Aguilera PT, [facility] Comment on above: Primary osteoarthrit is of left knee (Primary Dx) Start: 04-04-2024 End: 04-04-2024 ambulatory Isatu Aguilera PT, [facility] Start: 03-26-2024 End: 03-26-2024 Patient encounter procedure Isatu Aguilera PT, [facility] Comment on above: Primary osteoarthrit is of left knee (Primary Dx) Start: 03-26-2024 End: 03-26-2024 ambulatory Isatu Aguilera PT, [facility] Start: 03-22-2024 End: 03-22-2024 Patient encounter procedure Tea Jimenez [facility] Comment on above: Primary osteoarthrit is of left knee (Primary Dx) Start: 03-22-2024 End: 03-22-2024 ambulatory Tea Smith [facility] Start: 03-14-2024 End: 03-14-2024 Patient encounter procedure Isatu Rangeloss PT, [facility] Comment on above: Primary osteoarthrit is of left knee (Primary Dx) Start: 03-14-2024 End: 03-14-2024 ambulatory Isatu Engelugoss PT, [facility] Start: 03-07-2024 End: 03-07-2024 Patient encounter procedure Isatu Engelugoss PT, [facility] Comment on above: Primary osteoarthrit is of left knee (Primary Dx) Start: 03-07-2024 End: 03-07-2024 ambulatory Isatu Engelugoss PT, [facility] Start: 02-29-2024 End: 02-29-2024 Patient encounter procedure Isatu Engelugoss PT, [facility] Comment on above: Primary osteoarthrit is of left knee Start: 02-29-2024 End: 02-29-2024 ambulatory Isatu Engelugoss PT, [facility] Start: 02-28-2024 End: 02-28-2024 Patient encounter procedure Fredi Orellana PA-C Work Phone: Orthopaedics Comment on above: Primary osteoarthrit is of left knee (Primary Dx) Start: 02-28-2024 End: 02-28-2024 ambulatory FREDI ORELLANA Facility:[facility] Start: 02-28-2024 End: 02-28-2024 Subsequent hospital visit by physician [employer] Gauri Spangler Work Phone: Radiology Comment on above: Pain [R52] Start: 02-01-2024 End: 02-01-2024 [facility] Start: 10-30-2023 End: 10-30-2023 ambulatory [facility] Facility:[facility] Start: 06-22-2023 End: 06-22-2023 ambulatory [facility] Work Phone: Start: 06-22-2023 End: 06-22-2023 Patient encounter procedure [facility] Start: 06-22-2023 End: 06-22-2023 ambulatory Victorino Mckeon Facility:[facility] Start: 08-17-2022 End: 08-17-2022 ambulatory [facility] Work Phone: Start: 08-17-2022 End: 08-17-2022 Patient encounter procedure [facility] Start: 10-20-2021 End: 10-20-2021 Patient encounter procedure [facility] Procedures Date Procedure Procedure Detail Performing Clinician Start: 02-28-2024 Radiologic exam knee complete 4/more views Fredi Orellana PA-C Work Phone: Plan of Treatment Date Care Activity Detail Author Start: 05-29-2024 End: 05-29-2024 Patient encounter procedure 05/29/2024 10:30 AM EST Office Visit Orthopaedics [address] [address] Fredi Orellana PA-C [address] [address] Left knee pain Orthopaedics Comment on above: Left knee pain Start: 05-28-2024 End: 05-28-2024 Patient encounter procedure 05/28/2024 12:45 PM EST OT/PT/Speech Visit [facility] [address] [place] [address] Isatu Aguilera PT, DPT [address] [place] [address] Knee Pain [facility] Comment on above: Knee Pain Start: 04-04-2024 End: 04-04-2024 Patient encounter procedure 04/04/2024 10:45 AM EST OT/PT/Speech Visit [facility] [address] [place] [address] Isatu Aguilera PT, DPT [address] [place] [address] Knee Pain [facility] Comment on above: Knee Pain Start: 03-26-2024 End: 03-26-2024 Patient encounter procedure 03/26/2024 9:15 AM EST OT/PT/Speech Visit [facility] [address] [place] [address] Isatu Aguilera, PT, DPT [address] [place] [address] Knee Pain [facility] Comment on above: Knee Pain Start: 03-22-2024 End: 03-22-2024 Patient encounter procedure 03/22/2024 2:00 PM EST OT/PT/Speech Visit [facility] [address] [place] [address] Tea Jimenez PTA Knee Pain [facility] Comment on above: Knee Pain Start: 03-14-2024 End: 03-14-2024 Patient encounter procedure 03/14/2024 2:00 PM EST OT/PT/Speech Visit [facility] [address] [place] [address] Isatu Aguilera, PT, DPT [address] [place] [address] Knee Pain [facility] Comment on above: Knee Pain Start: 03-07-2024 End: 03-07-2024 Patient encounter procedure 03/07/2024 9:15 AM EST OT/PT/Speech Visit [facility] [address] [place] [address] Isatu Aguilera PT, DPT [address] [place] [address] Knee Pain [facility] Comment on above: Knee Pain Start: 02-29-2024 End: 02-29-2024 Patient encounter procedure 02/29/2024 10:00 AM EST OT/PT/Speech Visit [facility] [address] [place] [address] Isatu Aguilera, PT, DPT [address] [place] [address] [facility] Start: 11-26-2023 Covid-19 Vaccine ( season) Covid-19 Vaccine ( season) [facility] Start: 11-26-2023 Influenza vaccination Influenza Vacc ine (#1) [facility] Start: 2021 Prostate specific antigen measurement Prostate Cancer Screening Discussion [facility] Start: 04-17-2019 Urine microalbumin profile DTaP,Tdap,Td Vaccine (2 - Td or Tdap) [facility] Start: 2016 Shingrix Vaccine (1 of 2) Shingrix Vaccine (1 of 2) [facility] Start: 2011 Screening for malign ant neoplasm of colon [facility] Start: 1985 Hepatitis B Vaccine (1 of 3 - 19+ 3-dose series) Hepatitis B Vaccine (1 of 3 - 19+ 3-dose series) [facility] Start: 1985 Pneumococcal Vaccine : 50+ (1 of 2 - PCV) Pneumococcal Vaccine: 50+ (1 of 2 - PCV) [facility] Start: 1984 Annual PCP Team Debubblizer jason Disease Visit Annual PCP Team Chronic Disease Visit [facility] Start: 1984 Anxiety Screening Anxiety Screening [facility] Start: 1984 Depression Screening Depression Scre ening [facility] Start: 1984 Hepatitis B surface antibody level LDL Cholesterol [facility] Start: 1984 Hepatitis C screening Hepatitis C Sc jodie [facility] Start: 1984 HIV screening HIV Screening [facility] Start: 1976 Diabetic foot examination Diabetic Foot Exam [facility] Start: 1976 Glaucoma screening Dilated Retinal E xam [facility] Start: 1976 Hepatitis B screening Urine Albumin:Creatinine Ratio [facility] Start: 1972 Pneumococcal vaccination Pneumococcal Vaccine (1 of 2 - PCV) [facility] Start: 1971 Hemoglobin A1c measurement HbA1C [facility] Immunizations Immunization Date Immunization Notes Care Provider Fa chelsy 01-16-2020 influenza virus vaccine, unspecified formulation Fredi Orellana PA-C Work Phone: [facility] Payers Date Payer Category Payer Self-pay [id number] 2018 Unknown [employer] PPO [id number] 2018-Present [phone] [address] [place] [address] PPO [id number] 2010 Unknown [id number] Unknown [id number] Unknown [id number] Unknown [id number] Social History Date Type Detail Facility Start: 11-02-2018 Tobacco smoking status NHIS Unknown if ever smoked [facility] Start: 10-22-2018 None [facility] Start: 10-22-2018 Spouse/ Significant Other [facility] Start: 11-02-2018 Non-smoker [facility] Start: 1965 Sex Assigned At Male [facility] Start: 02-28-2024 Tobacco smoking status NHIS Never smoked tobacco [facility] Start: 02-28-2024 Tobacco use and exposure Smokeless tobacco non-user [facility] Start: 02-28-2024 Alcoholic beverage intake Lifetime non-drinker (finding) [facility] Start: 06-20-2019 End: 02-29-2024 History of Social function [facility]ason Start: 06-20-2019 End: 02-29-2024 Alcohol Use Disorder Identification Test - Consumption [AUDIT-C] [facility] How often to you hav e a drink containing alcohol? Never [facility] Average Number of Drinks Not on file [facility] Start: 1965 Sex assigned at Not on file [facility] Medical Equipment Procedure Code Equipment Code Equipment Origin al Text Equipment Identifier Dates STENT,URETERAL 6 FR PIG [id number] FDA Start: 11-07-2018 STENT,URETERAL 6 FR PIG [id number] FDA Start: 11-07-2018 STENT,URETERAL 6 FR PIG [id number] FDA Start: 11-07-2018 Clinical Notes 02-28-2024 to 04-04-2024 Isatu Aguilera PT, DPT - 04/04/2024 11:15 AM Isatu Espinoza PT, DPT - 03/26/2024 3:08 PM Isatu Espinoza PT, DPT - 03/26/2024 10:01 AM EST Note Date & Type Note Facility 04-04-2024 Note HNO ID: [id number] Author: ISATU AGUILERA PT, DPT Service: ? Author Type: Physical Therapist Type: Progress Notes Filed: 07/09/2024 10:28 Note Text: Episode Visit Count: 6 Therapist That Will Accept/Oversee The Plan Of Care: Willy Start of Care Date: 02/29/24 Onset Date: 10/26/23 Patient Identified by Name and Date of : Yes REHABILITATION AND SPORTS THERAPY PHYSICAL THERAPY PROGRESS REPORT and discharge PLAN OF CARE UPDATE: Assessment: Everardo Brittni Mares demonstrates significant improvement in strength and understanding how to decrease pain. The patient has met some goals. Patient continues to present with impairments in gait and range of motion that interfere with . Current prognosis is Excellent due to: current objective clinical presentation Good due to: current objective clinical presentation . The patient will benefit from continued skilled therapy services to meet the updated goals for this plan of care as noted below. Goals for Episode of Care: established 04/04/2024 [place] in home exercise program. Perform 17 reps in sit <> stand without pain- met Patient will decrease pain rating by 2 points to meet minimal clinical important difference for numeric pain rating scale.- not met Patient will increase active ROM of left knee to 0-135 without pain to allow pt to to improve gait mechanics / gait pattern .- not met Patient will demonstrate increase in left knee strength to 5/5 during manual muscle testing in order to improve function for moderate to heavy functional tasks.- met Perform biking on mild hills without pain.- unable to secondary to weather Demo more heel strike at initial contact during ambulation Demo +10 degree for HS flexibility with SLR measurement for better AROM and gait quality- not changed Patient Goals: to get back to riding his bike Patient Goals: to get back to riding his bike Planned Interventions, Frequency, and Duration: Discontinue Therapy Services, SUBJECTIVE: Pt reports still good days and bad days.. Patient Goals: to get back to riding his bike Pain: Pain Pain Level: 6 Pain Location: Knee - Left Description: (achy) Frequency: Intermittent Post Treatment Pain Post Treatment Pain Level: No Change PROMIS Scales 04/04/2024 02/29/2024 Higher is Better Phys Func - T Score 45 (within normal limits) 55 (within normal limits) Phys Func - Percentile 31 69 Self-Eff Symptom - T Score 69 (High) 59 (Average) Self-Eff Symptom - Percentile 97 82 T-scores: mean of general population = 50. 5 points is clinically meaningfully difference Percentiles provide an indication of how the patient's score ranks in relation to the general population. Higher percentile rankings indicate better function/quality of life. 50th percentile is the average of the general population and indicates half of respondents had a worse score. OBJECTIVE MEASURES WITH LEVEL OF FUNCTION: LE AROM L Knee Extension: 2 Degrees L Knee Flexion: 125 Degrees LE Flexibility L Hamstring Flexibility: 75 L Tom Test: 105 LE Strength L Hip Flexion (L2): 5/5 L Knee Extension (L3): 5/5 Functional Performance Test Results 30 Second Chair Stand Test: 19 reps 5 Times Sit to Stand Test : 9.7 sec TREATMENT: Therapeutic Exercise: 1: reassessment with discussion about POC and goals 2: discussion about avoiding inflammatory footds 3: discussion about avoiding hills with bike riding initially Skilled Intervention:education and assessment with goals Billing Therapeutic Exercise Treatment Minutes: 23 Total Session Time (minutes): 23 Session Start Time : 1050 Session Stop Time : 1113 Isatu Aguilera, PT, DPT [facility] 04-04-2024 History of Present illness Narrative Episode Visit Count: 6 Therapist That Will Accept/Oversee The Plan Of Care: Willy Start of Care Date: 02/29/24 Onset Date: 10/26/23 Patient Identified by Name and Date of : Yes REHABILITATION AND SPORTS THERAPY PHYSICAL THERAPY PROGRESS REPORT PLAN OF CARE UPDATE: Assessment: Everardo Mares demonstrates significant improvement in strength and understanding how to decrease pain. The patient has met some goals. Patient continues to present with impairments in gait and range of motion that interfere with . Current prognosis is Excellent due to: current objective clinical presentation Good due to: current objective clinical presentation . The patient will benefit from continued skilled therapy services to meet the updated goals for this plan of care as noted below. Goals for Episode of Care: established 04/04/2024 [place] in home exercise program. Perform 17 reps in sit <> stand without pain- met Patient will decrease pain rating by 2 points to meet minimal clinical important difference for numeric pain rating scale.- not met Patient will increase active ROM of left knee to 0-135 without pain to allow pt to to improve gait mechanics / gait pattern .- not met Patient will demonstrate increase in left knee strength to 5/5 during manual muscle testing in order to improve function for moderate to heavy functional tasks.- met Perform biking on mild hills without pain.- unable to secondary to weather Demo more heel strike at initial contact during ambulation Demo +10 degree for HS flexibility with SLR measurement for better AROM and gait quality- not changed Patient Goals: to get back to riding his bike Patient Goals: to get back to riding his bike Planned Interventions, Frequency, and Duration: 1 visit, (before 05/29/2024) Total Number of Visits Planned: 1 Patient to be seen for Therapeutic exercise (63383), Neuromuscular re-education (53947), Manual therapy (25080), Therapeutic activities (26395), Self-mcc management (04294), Gait Training (46736), Patient/Family/Caregiver Education PLAN FOR NEXT VISIT: recheck before going to see MD SUBJECTIVE: Pt reports still good days and bad days.. Patient Goals: to get back to riding his bike Pain: Pain Pain Level: 6 Pain Location: Knee - Left Description: (achy) Frequency: Intermittent Post Treatment Pain Post Treatment Pain Level: No Change PROMIS Scales 04/04/2024 02/29/2024 Higher is Better Phys Func - Score 45 (within normal limits) 55 (within normal limits) Phys Func - Percentile 31 69 Self-Eff Symptom - Score 69 (High) 59 (Average) Self-Eff Symptom - Percentile 97 82 T-scores: mean of general population = 50. 5 points is clinically meaningfully difference Percentiles provide an indication of how the patient's score ranks in relation to the general population. Higher percentile rankings indicate better function/quality of life. 50th percentile is the average of the general population and indicates half of respondents had a worse score. OBJECTIVE MEASURES WITH LEVEL OF FUNCTION: LE AROM L Knee Extension: 2 Degrees L Knee Flexion: 125 Degrees LE Flexibility L Hamstring Flexibility: 75 L Tom Test: 105 LE Strength L Hip Flexion (L2): 5/5 L Knee Extension (L3): 5/5 Functional Performance Test Results 30 Second Chair Stand Test: 19 reps 5 Times Sit to Stand Test : 9.7 sec TREATMENT: Therapeutic Exercise: 1: reassessment with discussion about POC and goals 2: discussion about avoiding inflammatory footds 3: discussion about avoiding hills with bike riding initially Skilled Intervention:education and assessment with goals Billing Therapeutic Exercise Treatment Minutes: 23 Total Session Time (minutes): 23 Session Start Time : 1050 Session Stop Time : 1113 Isatu Aguilera PT, DPT documented in this encounter [facility] 03-26-2024 Note HNO ID: [id number] Author: ISATU AGUILERA PT, DPT Service: ? Author Type: Physical Therapist Type: Progress Notes Filed: 03/26/2024 15:09 Note Text: Episode Visit Count: 5 Therapist That Will Accept/Oversee The Plan Of Care: Willy Start of Care Date: 02/29/24 Onset Date: 10/26/23 Patient Identified by Name and Date of : Yes REHABILITATION AND SPORTS THERAPY PHYSICAL THERAPY TREATMENT NOTE ASSESSMENT: Everardo Brittni Mares tolerated the session with no issues. He demonstrated no difficulty with therex today. The patient will continue to benefit from ongoing skilled physical therapy to progress toward set goals. PLAN FOR NEXT VISIT: recheck and then have pt work for 30 days on his own SUBJECTIVE: Pt reports that since last visist had one good day Pain: Pain Pain Level: 3 Pain Location: Knee - Left Frequency: Intermittent Post Treatment Pain Post Treatment Pain Level: No Change OBJECTIVE MEASURES WITH LEVEL OF FUNCTION: Gait Gait: Independent Gait Distance (feet): 80 Gait Device: None Gait Observation: antalgic gait pattern today TREATMENT: Therapeutic Exercise: 1: nu step seat/arm level 9, 4 resistance, 6 mins for improved strength. 2: standing R/L hamstring stretch 3x20 sec hold 6: glute bridge 2x 10 green stability ball 10: Knee extension machine 2.5 plates x 12 reps both legs, single leg 1 plate (left leg) 2 x 12 11: leg press 34 degrees x 20 12: sidestepping with GTB x 5 laps of table 13: SL hip abduction 2 x 10 B Skilled Intervention: Patient was educated in proper exercise technique and purpose for exercises. Skilled judgment was used in selection of appropriate interventions. Correct performance of therapeutic exercises was facilitated with verbal and visual cuing. Billing Therapeutic Exercise Treatment Minutes: 43 Total Session Time (minutes): 43 Session Start Time : 922 Session Stop Time : 1005 Isatu Aguilera PT, KARLO [facility] 03-26-2024 History of Present illness Narrative Episode Visit Count: 5 Therapist That Will Accept/Oversee The Plan Of Care: Willy Start of Care Date: 02/29/24 Onset Date: 10/26/23 Patient Identified by Name and Date of : Yes REHABILITATION AND SPORTS THERAPY PHYSICAL THERAPY TREATMENT NOTE ASSESSMENT: Everardo Mares tolerated the session with no issues. He demonstrated no difficulty with therex today. The patient will continue to benefit from ongoing skilled physical therapy to progress toward set goals. PLAN FOR NEXT VISIT: recheck and then have pt work for 30 days on his own SUBJECTIVE: Pt reports that since last visist had one good day Pain: Pain Pain Level: 3 Pain Location: Knee - Left Frequency: Intermittent Post Treatment Pain Post Treatment Pain Level: No Change OBJECTIVE MEASURES WITH LEVEL OF FUNCTION: Gait Gait: Independent Gait Distance (feet): 80 Gait Device: None Gait Observation: antalgic gait pattern today TREATMENT: Therapeutic Exercise: 1: nu step seat/arm level 9, 4 resistance, 6 mins for improved strength. 2: standing R/L hamstring stretch 3x20 sec hold 6: glute bridge 2x 10 green stability ball 10: Knee extension machine 2.5 plates x 12 reps both legs, single leg 1 plate (left leg) 2 x 12 11: leg press 34 degrees x 20 12: sidestepping with GTB x 5 laps of table 13: SL hip abduction 2 x 10 B Skilled Intervention: Patient was educated in proper exercise technique and purpose for exercises. Skilled judgment was used in selection of appropriate interventions. Correct performance of therapeutic exercises was facilitated with verbal and visual cuing. Billing Therapeutic Exercise Treatment Minutes: 43 Total Session Time (minutes): 43 Session Start Time : 922 Session Stop Time : 1005 Isatu Aguilera PT, DPT Program_ID:[id number] Access Code: [email or web address] URL: [email or web address] Date: 03-26-2024 Prepared By: Isatu Aguilera Program Notes Exercises - Sidelying Hip Abduction - 1 x daily - 7 x weekly - 3 sets - 10 reps - Small Range Straight Leg Raise - 1 x daily - 7 x weekly - 3 sets - 10 reps - Supine Hamstring Stretch with Strap - 1 x daily - 7 x weekly - 3 sets - 10 reps - Prone Quadriceps Stretch with Strap - 1 x daily - 7 x weekly - 3 sets - 10 reps - Supine Dynamic Modified Tom Quad and Hip Flexor Dynamic Stretch - 1 x daily - 7 x weekly - 3 sets - 10 reps - Standing Knee Flexion Stretch on Step - 1 x daily - 7 x weekly - 3 sets - 10 reps - Standing Gastroc Stretch on Step - 1 x daily - 7 x weekly - 3 sets - 10 reps - Hooklying Clamshell with Resistance - 1 x daily - 7 x weekly - 3 sets - 10 reps - Seated Hamstring Curl with Anchored Resistance - 1 x daily - 7 x weekly - 3 sets - 10 reps - Side Stepping with Resistance at Ankles - 1 x daily - 7 x weekly - 3 sets - 10 reps documented in this encounter [facility] 03-22-2024 History of Present illness Narrative Program_ID:[id number] Access Code: [email or web address] URL: [email or web address]/ Date: 03-22-2024 Prepared By: Isatu Aguilera Program Notes Exercises - Sidelying Hip Abduction - 1 x daily - 7 x weekly - 3 sets - 10 reps - Small Range Straight Leg Raise - 1 x daily - 7 x weekly - 3 sets - 10 reps - Supine Hamstring Stretch with Strap - 1 x daily - 7 x weekly - 3 sets - 10 reps - Prone Quadriceps Stretch with Strap - 1 x daily - 7 x weekly - 3 sets - 10 reps - Supine Dynamic Modified Tom Quad and Hip Flexor Dynamic Stretch - 1 x daily - 7 x weekly - 3 sets - 10 reps - Standing Knee Flexion Stretch on Step - 1 x daily - 7 x weekly - 3 sets - 10 reps - Standing Gastroc Stretch on Step - 1 x daily - 7 x weekly - 3 sets - 10 reps - Hooklying Clamshell with Resistance - 1 x daily - 7 x weekly - 3 sets - 10 reps Episode Visit Count: 4 Therapist That Will Accept/Oversee The Plan Of Care: Willy Start of Care Date: 02/29/24 Onset Date: 10/26/23 Patient Identified by Name and Date of : Yes REHABILITATION AND SPORTS THERAPY PHYSICAL THERAPY TREATMENT NOTE ASSESSMENT: Everardo Mares tolerated the session with expected muscle soreness. He demonstrated difficulty with left knee and hip resistance exercises however completed without modification. The patient will continue to benefit from ongoing skilled physical therapy to progress toward set goals. PLAN FOR NEXT VISIT: continue left hip knee stability and strength SUBJECTIVE: pt has difficulty sleeping. flucuates. hes having a better week. home exercises are going okay. ices and motrin for pain relief. Pain: Pain Pain Level: 3 Pain Location: Knee - Left Description: Other: See comment (strain) Frequency: Intermittent Post Treatment Pain Post Treatment Pain Level: No Change OBJECTIVE MEASURES WITH LEVEL OF FUNCTION: Observation: weakness with left hip abduction. TREATMENT: Therapeutic Exercise: 1: nu step seat/arm level 9, 4 resistance, 6 mins for improved strength. 2: standing R/L hamstring stretch 3x20 sec hold 3: hooklying abd 2x 10 purple tband 4: glute bridge abd 2x 10 purple tband 5: R/L supine hip flex green tband 6: glute bridge 2x 10 green stability ball 7: R/L LAQs 2x 10 3 sec hold at end range 4 lbs 8: bilateral heel,toe raises on airex pad 2 x10 ue support 9: standing 3 way hip 2x 10 red tband, standing leg on airex pad, ue support Skilled Intervention: Patient was educated in proper exercise technique and purpose for exercises. Billing Therapeutic Exercise Treatment Minutes: 42 Skilled Treatment Time Minutes (timed and untimed codes): 42 Total Session Time (minutes): 42 Session Start Time : 1343 Session Stop Time : 1425 Tea Jimenez PTA documented in this encounter [facility] 03-22-2024 Note HNO ID: [id number] Author: TEA JIMENEZ PTA Service: ? Author Type: Lock Assembler Type: Progress Notes Filed: 03/22/2024 14:36 Note Text: Episode Visit Count: 4 Therapist That Will Accept/Oversee The Plan Of Care: [place] Start of Care Date: 02/29/24 Onset Date: 10/26/23 Patient Identified by Name and Date of : Yes REHABILITATION AND SPORTS THERAPY PHYSICAL THERAPY TREATMENT NOTE ASSESSMENT: Everardo Mares tolerated the session with expected muscle soreness. He demonstrated difficulty with left knee and hip resistance exercises however completed without modification. The patient will continue to benefit from ongoing skilled physical therapy to progress toward set goals. PLAN FOR NEXT VISIT: continue left hip knee stability and strength SUBJECTIVE: pt has difficulty sleeping. flucuates. hes having a better week. home exercises are going okay. ices and motrin for pain relief. Pain: Pain Pain Level: 3 Pain Location: Knee - Left Description: Other: See comment (strain) Frequency: Intermittent Post Treatment Pain Post Treatment Pain Level: No Change OBJECTIVE MEASURES WITH LEVEL OF FUNCTION: Observation: weakness with left hip abduction. TREATMENT: Therapeutic Exercise: 1: nu step seat/arm level 9, 4 resistance, 6 mins for improved strength. 2: standing R/L hamstring stretch 3x20 sec hold 3: hooklying abd 2x 10 purple tband 4: glute bridge abd 2x 10 purple tband 5: R/L supine hip flex green tband 6: glute bridge 2x 10 green stability ball 7: R/L LAQs 2x 10 3 sec hold at end range 4 lbs 8: bilateral heel,toe raises on airex pad 2 x10 ue support 9: standing 3 way hip 2x 10 red tband, standing leg on airex pad, ue support Skilled Intervention: Patient was educated in proper exercise technique and purpose for exercises. Billing Therapeutic Exercise Treatment Minutes: 42 Skilled Treatment Time Minutes (timed and untimed codes): 42 Total Session Time (minutes): 42 Session Start Time : 1343 Session Stop Time : 1425 Tea Jimenze PTA [facility] 03-14-2024 Note HNO ID: [id number] Author: ISATU AGUILERA, PT, DPT Service: ? Author Type: Physical Therapist Type: Progress Notes Filed: 03/14/2024 14:41 Note Text: Episode Visit Count: 3 Therapist That Will Accept/Oversee The Plan Of Care: Willy Start of Care Date: 02/29/24 Onset Date: 10/26/23 Patient Identified by Name and Date of : Yes REHABILITATION AND SPORTS THERAPY PHYSICAL THERAPY TREATMENT NOTE ASSESSMENT: Everardo Mares tolerated the session with no issues. He demonstrated increased stiffness with flexion exercises. Avoided the machines today to see if backing off will allow time to reduce pain, also educated to use cane as needed and ice. The patient will continue to benefit from ongoing skilled physical therapy to progress toward set goals. PLAN FOR NEXT VISIT: progress is pain goes away SUBJECTIVE: Pt reports that he has been having a bad week. Did not do exercises but did walk today. Pt reports that sleeping is really difficult. Pain: Pain Pain Level: 6 Pain Location: Knee - Left Description: Aching Frequency: Intermittent OBJECTIVE MEASURES WITH LEVEL OF FUNCTION: Gait Gait Observation: antalgic gait pattern today TREATMENT: Therapeutic Exercise: 1: SLR 2 x 10 2: SL hip abduction 2 x 10 3: HS stretch on step 3 x 20 seconds 7: nu step level 4 x 7 minutes 8: calf stretch on step 3 x 20 seconds 9: knee flxion stretch on step for left knee 10 second hold x 10 reps Skilled Intervention: Patient was educated in proper exercise technique and purpose for exercises. Skilled judgment was used in selection of appropriate interventions. Correct performance of therapeutic exercises was facilitated with verbal and visual cuing. Billing Therapeutic Exercise Treatment Minutes: 29 Total Session Time (minutes): 29 Session Start Time : 1408 Session Stop Time : 1437 Isatu Aguilera, PT, DPT [facility] 03-14-2024 History of Present illness Narrative Episode Visit Count: 3 Therapist That Will Accept/Oversee The Plan Of Care: Willy Start of Care Date: 02/29/24 Onset Date: 10/26/23 Patient Identified by Name and Date of : Yes REHABILITATION AND SPORTS THERAPY PHYSICAL THERAPY TREATMENT NOTE ASSESSMENT: Everardo Mares tolerated the session with no issues. He demonstrated increased stiffness with flexion exercises. Avoided the machines today to see if backing off will allow time to reduce pain, also educated to use cane as needed and ice. The patient will continue to benefit from ongoing skilled physical therapy to progress toward set goals. PLAN FOR NEXT VISIT: progress is pain goes away SUBJECTIVE: Pt reports that he has been having a bad week. Did not do exercises but did walk today. Pt reports that sleeping is really difficult. Pain: Pain Pain Level: 6 Pain Location: Knee - Left Description: Aching Frequency: Intermittent OBJECTIVE MEASURES WITH LEVEL OF FUNCTION: Gait Gait Observation: antalgic gait pattern today TREATMENT: Therapeutic Exercise: 1: SLR 2 x 10 2: SL hip abduction 2 x 10 3: HS stretch on step 3 x 20 seconds 7: nu step level 4 x 7 minutes 8: calf stretch on step 3 x 20 seconds 9: knee flxion stretch on step for left knee 10 second hold x 10 reps Skilled Intervention: Patient was educated in proper exercise technique and purpose for exercises. Skilled judgment was used in selection of appropriate interventions. Correct performance of therapeutic exercises was facilitated with verbal and visual cuing. Billing Therapeutic Exercise Treatment Minutes: 29 Total Session Time (minutes): 29 Session Start Time : 1408 Session Stop Time : 1437 Isatu Aguilera PT, DPT documented in this encounter [facility] 03-07-2024 History of Present illness Narrative Program_ID:[id number] Access Code: [email or web address] URL: [email or web address] [facility] Date: 03-07-2024 Prepared By: Isatu Aguilera Program Notes Exercises - Sidelying Hip Abduction - 1 x daily - 7 x weekly - 3 sets - 10 reps - Small Range Straight Leg Raise - 1 x daily - 7 x weekly - 3 sets - 10 reps - Supine Hamstring Stretch with Strap - 1 x daily - 7 x weekly - 3 sets - 10 reps - Prone Quadriceps Stretch with Strap - 1 x daily - 7 x weekly - 3 sets - 10 reps - Supine Dynamic Modified Tom Quad and Hip Flexor Dynamic Stretch - 1 x daily - 7 x weekly - 3 sets - 10 reps - Standing Knee Flexion Stretch on Step - 1 x daily - 7 x weekly - 3 sets - 10 reps - Standing Gastroc Stretch on Step - 1 x daily - 7 x weekly - 3 sets - 10 reps Episode Visit Count: 2 Therapist That Will Accept/Oversee The Plan Of Care: Willy Start of Care Date: 02/29/24 Onset Date: 10/26/23 Patient Identified by Name and Date of : Yes REHABILITATION AND SPORTS THERAPY PHYSICAL THERAPY TREATMENT NOTE ASSESSMENT: Everardo Mares tolerated the session with no issues. He demonstrated improvements in AROM and not limping as much as last session. Did report some pain with pushing down on bike and minimal pain with quad stretch, waiting for strap to stretch with at home. The patient will continue to benefit from ongoing skilled physical therapy to progress toward set goals. PLAN FOR NEXT VISIT: step ups forward and lateral SUBJECTIVE: Pt reports that this actually works. Pain: Pain Pain Level: 4 Pain Location: Knee - Left Description: Aching Frequency: Intermittent Post Treatment Pain Post Treatment Pain Level: No Change OBJECTIVE MEASURES WITH LEVEL OF FUNCTION: Gait Gait Observation: less antalgic gait pattern today than at evaluation TREATMENT: Therapeutic Exercise: 1: SLR 2 x 10 2: SL hip abduction 2 x 10 3: HS stretch on step 3 x 20 seconds 4: prone quad stretch with leash 2 x 20 seconds 7: bike for 5 minutes for AROM seat 4 8: calf stretch on step 2 x 30 seconds 9: knee flxion stretch on step for left knee 10 second hold x 10 reps 10: leg extension machine 2 x 10 1 plate left only Skilled Intervention: Patient was educated in proper exercise technique and purpose for exercises. Skilled judgment was used in selection of appropriate interventions. Provided written instruction for home exercise program to facilitate proper performance and compliance. Correct performance of therapeutic exercises was facilitated with verbal and visual cuing. Billing Therapeutic Exercise Treatment Minutes: 38 Total Session Time (minutes): 38 Session Start Time : 925 Session Stop Time : 1003 Isatu Aguilera PT, DPT documented in this encounter [facility] 03-07-2024 Note HNO ID: [id number] Author: ISATU AGUILERA PT, DPT Service: ? Author Type: Physical Therapist Type: Progress Notes Filed: 03/07/2024 12:04 Note Text: Episode Visit Count: 2 Therapist That Will Accept/Oversee The Plan Of Care: Willy Start of Care Date: 02/29/24 Onset Date: 10/26/23 Patient Identified by Name and Date of : Yes REHABILITATION AND SPORTS THERAPY PHYSICAL THERAPY TREATMENT NOTE ASSESSMENT: Everardo Mares tolerated the session with no issues. He demonstrated improvements in AROM and not limping as much as last session. Did report some pain with pushing down on bike and minimal pain with quad stretch, waiting for strap to stretch with at home. The patient will continue to benefit from ongoing skilled physical therapy to progress toward set goals. PLAN FOR NEXT VISIT: step ups forward and lateral SUBJECTIVE: Pt reports that this actually works. Pain: Pain Pain Level: 4 Pain Location: Knee - Left Description: Aching Frequency: Intermittent Post Treatment Pain Post Treatment Pain Level: No Change OBJECTIVE MEASURES WITH LEVEL OF FUNCTION: Gait Gait Observation: less antalgic gait pattern today than at evaluation TREATMENT: Therapeutic Exercise: 1: SLR 2 x 10 2: SL hip abduction 2 x 10 3: HS stretch on step 3 x 20 seconds 4: prone quad stretch with leash 2 x 20 seconds 7: bike for 5 minutes for AROM seat 4 8: calf stretch on step 2 x 30 seconds 9: knee flxion stretch on step for left knee 10 second hold x 10 reps 10: leg extension machine 2 x 10 1 plate left only Skilled Intervention: Patient was educated in proper exercise technique and purpose for exercises. Skilled judgment was used in selection of appropriate interventions. Provided written instruction for home exercise program to facilitate proper performance and compliance. Correct performance of therapeutic exercises was facilitated with verbal and visual cuing. Billing Therapeutic Exercise Treatment Minutes: 38 Total Session Time (minutes): 38 Session Start Time : 925 Session Stop Time : 100 Isatu Aguilera PT, DPT [facility] 02-29-2024 Note HNO ID: [id number] Author: ISATU AGUILERA, PT, DPT Service: ? Author Type: Physical Therapist Type: Progress Notes Filed: 02/29/2024 11:22 Note Text: Episode Visit Count: 1 Therapist That Will Accept/Oversee The Plan Of Care: Willy Start of Care Date: 02/29/24 Onset Date: 10/26/23 Patient Identified by Name and Date of : Yes REHABILITATION AND SPORTS THERAPY PHYSICAL THERAPY EVALUATION PLAN OF CARE: Assessment: Everardo Mares presents with diagnosis of mild L knee OA that interferes with sitting, walking in the community, stair negotiation, physical activities, kneeling, sleeping (stairs going down, riding his bike) . The patient presents with impairments in flexibility, gait, joint mobility, range of motion, and strength. PROMIS? (Patient-Reported Outcomes Measurement Information System) scores were reviewed and identified as within normal limits. Prognosis for therapy is Excellent due to: current objective clinical presentation (could decline to good outcome secondary to OA) . The patient will benefit from skilled therapy services to meet the goals established for this plan of care as noted below. Goals for Episode of Care: established 02/29/24 [place] in home exercise program. Perform 17 reps in sit <> stand without pain Patient will decrease pain rating by 2 points to meet minimal clinical important difference for numeric pain rating scale. Patient will increase active ROM of left knee to 0-135 without pain to allow pt to to improve gait mechanics / gait pattern . Patient will demonstrate increase in left knee strength to 5/5 during manual muscle testing in order to improve function for moderate to heavy functional tasks. Perform biking on mild hills without pain. Demo more heel strike at initial contact during ambulation Demo +10 degree for HS flexibility with SLR measurement for better AROM and gait quality Patient Goals: to get back to riding his bike Time Frame for Goals and Treatment : 04/14/24 Planned Interventions, Frequency, and Duration: Current Frequency: 1x/week Duration: 6 weeks Total Number of Visits Planned: 6 Planned Treatment Interventions: Therapeutic exercise (11395), Neuromuscular re-education (19486), Manual therapy (31912), Therapeutic activities (10517), Self-mcc management (98690), Gait Training (99606), Patient/Family/Caregiver Education PLAN FOR NEXT VISIT: bike or elypticle/nu step for warm up, progress strength and AROM/flexibiltiy Patient demonstrates good understanding of plan of care and treatment. The above goals and plan of care were discussed and agreed upon by patient/family. SUBJECTIVE: left knee pain. Started 3 months ago and had to quit riding his bike. Walks 1 hour a day in the morning. Reports pain at night too, uncomfortable when sleeping. 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 5 points is clinically meaningfully difference Percentiles provide an indication of how the patient's score ranks in relation to the general population. Higher percentile rankings indicate better function/quality of life. 50th percentile is the average of the general population and indicates half of respondents had a worse score. OBJECTIVE MEASURES WITH LEVEL OF FUNCTION: Knee Observations L Knee Palpation Tenderness: (No tenderness noted today with palpation) Knee Brace: (does wear a compression brace today) LE AROM R Knee Extension: 0 Degrees R Knee Flexion: 135 Degrees L Knee Extension: 2 Degrees (pain) L Knee Flexion: 127 Degrees LE Flexibility Flexibility: Hamstring Flexibility, Tom Test R Hamstring Flexibility: 69 L Hamstring Flexibility: 69 R Tom Test: 121 (modified) L Tom Test: 105 (modified) LE Strength R LE Strength: 5/5 L Hip Extension: 5/5 L Hip Flexion (L2): 4/5 L Hip ABduction: 5/5 L Knee Extension (L3): 4+/5 L Knee Extension Functional Strength (L3): does demonstrate quad lag with SLR L Knee Flexion: 5/5 L Ankle Dorsiflexion (L4): 5/5 Lower Extremity Dynamometer Testing : Yes Dynamometer Strength Right Quadriceps Strength (lbs): 41 Left (more content not included)... [facility] 02-29-2024 History of Present illness Narrative Episode Visit Count: 1 Therapist That Will Accept/Oversee The Plan Of Care: Willy Start of Care Date: 02/29/24 Onset Date: 10/26/23 Patient Identified by Name and Date of : Yes REHABILITATION AND SPORTS THERAPY PHYSICAL THERAPY EVALUATION PLAN OF CARE: Assessment: Everardo Mares presents with diagnosis of mild L knee OA that interferes with sitting, walking in the community, stair negotiation, physical activities, kneeling, sleeping (stairs going down, riding his bike) . The patient presents with impairments in flexibility, gait, joint mobility, range of motion, and strength. PROMIS (Patient-Reported Outcomes Measurement Information System) scores were reviewed and identified as within normal limits. Prognosis for therapy is Excellent due to: current objective clinical presentation (could decline to good outcome secondary to OA) . The patient will benefit from skilled therapy services to meet the goals established for this plan of care as noted below. Goals for Episode of Care: established 02/29/24 [place] in home exercise program. Perform 17 reps in sit <> stand without pain Patient will decrease pain rating by 2 points to meet minimal clinical important difference for numeric pain rating scale. Patient will increase active ROM of left knee to 0-135 without pain to allow pt to to improve gait mechanics / gait pattern . Patient will demonstrate increase in left knee strength to 5/5 during manual muscle testing in order to improve function for moderate to heavy functional tasks. Perform biking on mild hills without pain. Demo more heel strike at initial contact during ambulation Demo +10 degree for HS flexibility with SLR measurement for better AROM and gait quality Patient Goals: to get back to riding his bike Time Frame for Goals and Treatment : 04/14/24 Planned Interventions, Frequency, and Duration: Current Frequency: 1x/week Duration: 6 weeks Total Number of Visits Planned: 6 Planned Treatment Interventions: Therapeutic exercise (37188), Neuromuscular re-education (92576), Manual therapy (87348), Therapeutic activities (42740), Self-mcc management (61029), Gait Training (04156), Patient/Family/Caregiver Education PLAN FOR NEXT VISIT: bike or elypticle/nu step for warm up, progress strength and AROM/flexibiltiy Patient demonstrates good understanding of plan of care and treatment. The above goals and plan of care were discussed and agreed upon by patient/family. SUBJECTIVE: left knee pain. Started 3 months ago and had to quit riding his bike. Walks 1 hour a day in the morning. Reports pain at night too, uncomfortable when sleeping. 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 5 points is clinically meaningfully difference Percentiles provide an indication of how the patient's score ranks in relation to the general population. Higher percentile rankings indicate better function/quality of life. 50th percentile is the average of the general population and indicates half of respondents had a worse score. OBJECTIVE MEASURES WITH LEVEL OF FUNCTION: Knee Observations L Knee Palpation Tenderness: (No tenderness noted today with palpation) Knee Brace: (does wear a compression brace today) LE AROM R Knee Extension: 0 Degrees R Knee Flexion: 135 Degrees L Knee Extension: 2 Degrees (pain) L Knee Flexion: 127 Degrees LE Flexibility Flexibility: Hamstring Flexibility, Tom Test R Hamstring Flexibility: 69 L Hamstring Flexibility: 69 R Tom Test: 121 (modified) L Tom Test: 105 (modified) LE Strength R LE Strength: 5/5 L Hip Extension: 5/5 L Hip Flexion (L2): 4/5 L Hip ABduction: 5/5 L Knee Extension (L3): 4+/5 L Knee Extension Functional Strength (L3): does demonstrate quad lag with SLR L Knee Flexion: 5/5 L Ankle Dorsiflexion (L4): 5/5 Lower Extremity Dynamometer Testing : Yes Dynamometer Strength Right Quadriceps Strength (lbs): 41 Left Quadriceps Strength (lbs): 43 Functional Strength Functional Strength: Sit<>stand Sit/Stand: does have wider DAVIN and more hip ER on left than right Gait Gait: Independent Gait Distance (feet): 80 Gait Device: None Gait Observation: does have antalgic gait pattern and demonstrates decreased heel strike at initial contact B with foot wear Stairs: (not tested) Waist / Hip Waist Circumference: 48.5 Inches Hip Circumference: 46 Inches Waist to Hip Ratio:: 1.05 [place] waist/hip ratio: Female: 0.8 or Less Functional Performance Test Results 30 Second Chair Stand Test: 14 reps 5 Times Sit to Stand Test : 11.7 sec Timed Up and Go (sec): 8.1 sec 4 Stage Balance Test Single leg stance - right (sec): 30 sec Single leg stance - left (sec): 30 sec Education: Education Learning Preferences: Demonstration, Explanation, Performance, Printed Materials Barriers: None Learning/educational needs: Home exercise program, Plan of Care Education Provided: Yes, see treatment interventions for education provided Education Provided To: Patient Education Mode/Type: Demonstration, Explanation/Discussion, Literature/Printed Materials, Performance Response to Education/Teach Back: States/Identifies, Return Demonstration Knee OA Overview Class: (educated about it) Nutrition and Weight Management Class: (educated about it) Bracing Class: (pt wears a compression brace) Exercise and Knee OA Class: (gave pt written information about class) TREATMENT: PT Treatment Interventions: Therapeutic Exercise Evaluation Evaluation Therapeutic Exercise: 1: SLR 2: SL hip abduction 3: 3 different ways to stretch HS 4: 2 different ways to stretch quads 5: heel slide for AROM with overpressure 6: eduation to raise seat of bike and lower resistance to flat road on bike Skilled Intervention: Patient was educated in proper exercise technique and purpose for exercises. Skilled judgment was used in selection of appropriate interventions. Provided written instruction for home exercise program to facilitate proper performance and compliance. Correct performance of therapeutic exercises was facilitated with verbal and visual cuing. Billing * Evaluation Low Complexity: 1 Unit Therapeutic Exercise Treatment Minutes: 23 Total Session Time (minutes): 44 Session Start Time : 955 Session Stop Time : 1040 Isatu Aguilera PT, DPT Program_ID:[id number] Access Code: [email or web address] URL: [email or web address] Date: 02-29-2024 Prepared By: Isatu Aguilera Program Notes Exercises - Sidelying Hip Abduction - 1 x daily - 7 x weekly - 3 sets - 10 reps - Small Range Straight Leg Raise - 1 x daily - 7 x weekly - 3 sets - 10 reps - Supine Hamstring Stretch with Strap - 1 x daily - 7 x weekly - 3 sets - 10 reps - Seated Table Hamstring Stretch - 1 x daily - 7 x weekly - 3 sets - 10 reps - Standing Hamstring Stretch with Step - 1 x daily - 7 x weekly - 3 sets - 10 reps - Prone Quadriceps Stretch with Strap - 1 x daily - 7 x weekly - 3 sets - 10 reps - Supine Dynamic Modified Tom Quad and Hip Flexor Dynamic Stretch - 1 x daily - 7 x weekly - 3 sets - 10 reps - Supine Heel Slide with Strap - 1 x daily - 7 x weekly - 3 sets - 10 reps documented in this encounter [facility] 02-28-2024 Note HNO ID: [id number] Author: FREDI ORELLANA PA-C Service: ? Author Type: Physician Windlasser Type: Progress Notes Filed: 02/28/2024 08:45 Note Text: HISTORY OF PRESENT ILLNESS: Everardo is a 58 year old male. He is here for evaluation of Left knee pain. Patient reports 3 months of left knee pain without known injury or trauma. He has not had any surgeries in this knee. States that the pain is mostly anterior and lateral and he feels like his gait is changing. He is an avid cyclist and has needed to quit riding his bike due to the pain. He also walks approximately 1 hour/day. He states that when he first initiates walking the pain gets better towards the end he does notice some dull aching pain. Denies any mechanical symptoms of buckling, pain, snapping in the knee. Denies any numbness or tingling in the left lower extremity. He is currently taking Motrin which does give him some relief. He is also icing his knee intermittently. No other concerns today. Injury:No PAIN EVALUATION 02/28/2024 0805 Pain Level: 4 Pain Location: Knee-Left Description: Aching;Dull Duration Amount of Time: 3 Duration Units: Months Frequency: Continuous Intervention/Comfort measure: Medication;Reposition;Relaxatio n MEDICATIONS Current Outpatient Medications on File Prior to Visit Medication Sig SYNJARDY XR 12.5-1,000 mg XR tab Take 2 tablets by mouth every morning. ergocalciferol 50,000 unit capsule (VITAMIN D2, DRISDOL) Take 1 capsule by mouth one time a week. rosuvastatin (CRESTOR) 20 mg tablet Take 1 tablet by mouth every afternoon. lisinopril (ZESTRIL) 40 mg tablet aspirin (JAMES CHEWABLE ASPIRIN) 81 mg chewable tablet Take 81 mg by mouth once daily. CPAP CPAP supplies. Life time supplies. Request for new DME - [facility]. Pt with functioning ResMed AirSense set at [id number] with EPR of 3. Compliant. (Patient not taking: Reported on 02/28/2024) glimepiride (AMARYL) 4 mg tablet Take 4 mg by mouth daily with breakfast. (Patient not taking: Reported on 02/28/2024) No current facility-administered medications on file prior to visit. ALLERGIES ALLERGIES No Known Allergies PAST MEDICAL HISTORY PAST MEDICAL HISTORY Diagnosis Date Diabetes (HCC) HLD (hyperlipidemia) HTN (hypertension) KRISH (obstructive sleep apnea) PAST SURGICAL HISTORY No past surgical history on file. SOCIAL HISTORY Tobacco: Non-smoker, never smoked FAMILY HISTORY Does a similar condition to what you are experiencing run in your family? No REVIEW OF SYSTEMS: All other systems negative. PHYSICAL EXAM: PE: All other systems deferred. GENERAL: Appears healthy, well-nourished, no deformities. HABITUS: Normal Gait: Normal, the patient did not have trouble getting onto the exam table. Left: Alignment: Varus deformity, Correctable Range of motion is lacking a few degrees secondary to tight hamstrings degrees in extension and 120 degrees of flexion. Extension Lag: < 10 degrees Pain with ROM: Yes Effusion: Mild Tender to the palpation of Lateral joint line Pain with patellar compression: Yes Stability: Anterior/Posterior stable and Varus/Valgus stable Hip Exam: flexion to 100+ degrees, full extension, internal/external rotation adequate, and no pain with log roll Neurovascular Status: Sensation Intact, Moves foot and ankle up AND down, and 2+ dorsalis pedis Strength: 5 Skin: Normal RADIOGRAPHS (personally reviewed): Mild left knee osteoarthritis predominantly in the patellofemoral and medial compartments MRI: None DIAGNOSIS Encounter Diagnosis ICD-10-CM 1. Primary osteoarthritis of left knee M17.12 CONSULT TO PHYSICAL THERAPY PLAN Patient's symptoms are most consistent with left knee osteoarthritis. Treatment options were discussed today. Since this pain is relatively new we will have him continue anti-inflammatories and start physical therapy. Should pain continue or get worse we can always pursue a cortisone injection in the future. Follow-up in 3 to 4 months for reassessment. Will continue to monitor patient for Primary osteoarthritis of left knee (primary encounter diagnosis), patient to schedule visit as per follow up discussed. I spent a total of 30 minutes on the date of the service which included preparing to see the patient, [id number] patient care, completing clinical documentation, obtaining and/or reviewing separately obtained history, performing a medically appropriate examination, counseling and educating the patient/family/caregiver, ordering medications, tests, or procedures, communicating with other HCPs (not separately reported), independently interpreting results (not separately reported), communicating results to the patient/family/caregiver, and care coordination (not separately reported). PROCEDURE: Procedures Fredi Orellana PA-C [facility] 02-28-2024 History of Present illness Narrative HISTORY OF PRESENT ILLNESS: Everardo is a 58 year old male. He is here for evaluation of Left knee pain. Patient reports 3 months of left knee pain without known injury or trauma. He has not had any surgeries in this knee. States that the pain is mostly anterior and lateral and he feels like his gait is changing. He is an avid cyclist and has needed to quit riding his bike due to the pain. He also walks approximately 1 hour/day. He states that when he first initiates walking the pain gets better towards the end he does notice some dull aching pain. Denies any mechanical symptoms of buckling, pain, snapping in the knee. Denies any numbness or tingling in the left lower extremity. He is currently taking Motrin which does give him some relief. He is also icing his knee intermittently. No other concerns today. Injury:No PAIN EVALUATION 02/28/2024 0805 Pain Level: 4 Pain Location: Knee-Left Description: Aching;Dull Duration Amount of Time: 3 Duration Units: Months Frequency: Continuous Intervention/Comfort measure: Medication;Reposition;Relaxatio n MEDICATIONS Current Outpatient Medications on File Prior to Visit Medication Sig SYNJARDY XR 12.5-1,000 mg XR tab Take 2 tablets by mouth every morning. ergocalciferol 50,000 unit capsule (VITAMIN D2, DRISDOL) Take 1 capsule by mouth one time a week. rosuvastatin (CRESTOR) 20 mg tablet Take 1 tablet by mouth every afternoon. lisinopril (ZESTRIL) 40 mg tablet aspirin (JAMES CHEWABLE ASPIRIN) 81 mg chewable tablet Take 81 mg by mouth once daily. CPAP CPAP supplies. Life time supplies. Request for new DME - [facility]. Pt with functioning [employer] AirSense set at [id number] with EPR of 3. Compliant. (Patient not taking: Reported on 02/28/2024) glimepiride (AMARYL) 4 mg tablet Take 4 mg by mouth daily with breakfast. (Patient not taking: Reported on 02/28/2024) No current facility-administered medications on file prior to visit. ALLERGIES ALLERGIES No Known Allergies PAST MEDICAL HISTORY PAST MEDICAL HISTORY Diagnosis Date Diabetes (HCC) HLD (hyperlipidemia) HTN (hypertension) KRISH (obstructive sleep apnea) PAST SURGICAL HISTORY No past surgical history on file. SOCIAL HISTORY Tobacco: Non-smoker, never smoked FAMILY HISTORY Does a similar condition to what you are experiencing run in your family? No REVIEW OF SYSTEMS: All other systems negative. PHYSICAL EXAM: PE: All other systems deferred. GENERAL: Appears healthy, well-nourished, no deformities. HABITUS: Normal Gait: Normal, the patient did not have trouble getting onto the exam table. Left: Alignment: Varus deformity, Correctable Range of motion is lacking a few degrees secondary to tight hamstrings degrees in extension and 120 degrees of flexion. Extension Lag: < 10 degrees Pain with ROM: Yes Effusion: Mild Tender to the palpation of Lateral joint line Pain with patellar compression: Yes Stability: Anterior/Posterior stable and Varus/Valgus stable Hip Exam: flexion to 100+ degrees, full extension, internal/external rotation adequate, and no pain with log roll Neurovascular Status: Sensation Intact, Moves foot and ankle up & down, and 2+ dorsalis pedis Strength: 5 Skin: Normal RADIOGRAPHS (personally reviewed): Mild left knee osteoarthritis predominantly in the patellofemoral and medial compartments MRI: None DIAGNOSIS Encounter Diagnosis ICD-10-CM 1. Primary osteoarthritis of left knee M17.12 CONSULT TO PHYSICAL THERAPY PLAN Patient's symptoms are most consistent with left knee osteoarthritis. Treatment options were discussed today. Since this pain is relatively new we will have him continue anti-inflammatories and start physical therapy. Should pain continue or get worse we can always pursue a cortisone injection in the future. Follow-up in 3 to 4 months for reassessment. Will continue to monitor patient for Primary osteoarthritis of left knee (primary encounter diagnosis), patient to schedule visit as per follow up discussed. I spent a total of 30 minutes on the date of the service which included preparing to see the patient, [id number] patient care, completing clinical documentation, obtaining and/or reviewing separately obtained history, performing a medically appropriate examination, counseling and educating the patient/family/caregiver, ordering medications, tests, or procedures, communicating with other HCPs (not separately reported), independently interpreting results (not separately reported), communicating results to the patient/family/caregiver, and care coordination (not separately reported). PROCEDURE: Procedures Fredi Orellana PA-C documented in this encounter [facility] 02-28-2024 History of Present illness Narrative Radiology Service Progress Note PATIENT NAME: Everardo Mares DATE OF SERVICE: February 28, 2024 TIME: 8:23 AM PATIENT IDENTITY VERIFICATION COMPLETED USING TWO (2) IDENTIFIERS: Name and Date of confirmed by patient verbally. FALL SCREENING: Has the patient had 2 falls in the last year or 1 fall with injury or currently using an Ambulatory Assistive Device (Walker, Cane, Wheelchair, Crutches, etc.)? No PATIENT GENDER DATA: Male PATIENT RELEVANT IMPLANT DATA REVIEWED: Not Applicable PATIENT PRESENTS WITH AN IMPLANTABLE OR ATTACHED [employer]: No RADIOLOGY DEPARTMENT: General X-ray: Exam(s) Completed: Lower Extremity X-Ray(s): Knee, AP / Lat / Tunne / Merchant Left and Wt. Bearing PERIPHERAL IV DATA: Not applicable SIGNED BY: Domo Valdovinos February 28, 2024 8:23 AM documented in this encounter [facility] 02-28-2024 Note HNO ID: [id number] Author: ROSA HOWARD Tech Service: Radiology Author Type: Tool Room Lathe Operator Type: Progress Notes Filed: 02/28/2024 08:23 Note Text: Radiology Service Progress Note PATIENT NAME: Everardo Mares DATE OF SERVICE: February 28, 2024 TIME: 8:23 AM PATIENT IDENTITY VERIFICATION COMPLETED USING TWO (2) IDENTIFIERS: Name and Date of confirmed by patient verbally. FALL SCREENING: Has the patient had 2 falls in the last year or 1 fall with injury or currently using an Ambulatory Assistive Device (Walker, Cane, Wheelchair, Crutches, etc.)? No PATIENT GENDER DATA: Male PATIENT RELEVANT IMPLANT DATA REVIEWED: Not Applicable PATIENT PRESENTS WITH AN IMPLANTABLE OR ATTACHED [employer]: No RADIOLOGY DEPARTMENT: General X-ray: Exam(s) Completed: Lower Extremity X-Ray(s): Knee, AP / Lat / Tunne / Merchant Left and Wt. Bearing PERIPHERAL IV DATA: Not applicable SIGNED BY: Domo Valdovinos February 28, 2024 8:23 AM [facility] Evaluation note No assessment inform ation available [facility] Work Phone: Evaluation note Diagnosis Primary osteoarthritis of left knee- Primary Primary localized osteoarthrosis, lower leg [facility] Diagnosis Pain Generalized pain documented in this encounter [facility] note* Diagnosis Primary osteoarthritis of left knee Primary localized osteoarthrosis, lower leg documented in this encounter [facility] note* Diagnosis Primary osteoarthritis of left knee- Primary Primary localized osteoarthrosis, lower leg documented in this encounter [facility] note* Diagnosis Primary osteoarthritis of left knee- Primary Primary localized osteoarthrosis, lower leg [facility] Diagnosis Primary osteoarthritis of left knee- Primary Primary localized osteoarthrosis, lower leg documented in this encounter [facility] note* Diagnosis Primary osteoarthritis of left knee- Primary Primary localized osteoarthrosis, lower leg documented in this encounter [facility] for referral (narrative)* Diagnostic Procedure Only (Routine) - Closed Specialty Diagnoses / Procedures Referred By Contac t Referred To Contact XR IMAGING Diagnoses Pain Procedures XR KNEE GENERAL 4V AP BOTH/PA BOTH/LAT/MERC LEFT RADIOLOGIC EXAM KNEE COMPLETE 4/MORE VIEWS Fredi Orellana PA-C [address] [address] [place] [address] Referral ID Status Reason Start Date Expiration Date V isits Requested Visits Authorized [id number] Closed Auto-Generate d Referral 02/21/2024 03/22/2025 1 1 [facility] for visit Narrative* Diagnostic Procedure Only (Routine) - Closed Specialty Diagnoses / Procedures Referred By Contac t Referred To Contact XR IMAGING Diagnoses Pain Procedures XR KNEE GENERAL 4V AP BOTH/PA BOTH/LAT/MERC LEFT RADIOLOGIC EXAM KNEE COMPLETE 4/MORE VIEWS Fredi Orellana PA-C [address] [address] [place] [address] Referral ID Status Reason Start Date Expiration Date V isits Requested Visits Authorized [id number] Closed Auto-Generate d Referral 02/21/2024 03/22/2025 1 1 [facility] Summary Purpose Family History No Family History Records FoundNo Family History Records FoundNo Family History Records FoundNo Family History Records Found Advance Directives No Advanced Directives Records Found Advance Directive Response Recorded Date/ Time Living Will No November 02, 2018 9:03am Power of Production Welding Supervisor No November 02 9:03am Reason for Referral Specialty Diagnoses / Procedures Referred By Contac t Referred To Contact [facility] Diagnoses Primary osteoarthritis of left knee Procedures CONSULT TO PHYSICAL THERAPY PHYSICAL THERAPY EVALUATION HIGH COMPLEX 45 MINS Fredi Orellana PA-C [address] [address] [facility] [place] [address] Referral ID Status Reason Start Date Expiration Date Visits Requested Visits Authorized [id number] Authorized Auto-Generat ed Referral 03/27/2023 03/26/2024 99 99 Additional Source Comments (unrecognized sect ion and content) No Status Records FoundNo Status Records FoundNo Status Records FoundNo Status Records Found INFORMATION SOURCE (unrecogn ized section and content) DATE CREATED AUTHOR 06/20/2019 [facility] DATE CREATED AUTHOR AUTHOR'S ORGANIZ ATION 02/27/2024 [facility] DATE CREATED AUTHOR AUTHOR'S ORGANIZ ATION 03/01/2024 [facility] DATE CREATED AUTHOR AUTHOR'S ORGANIZ ATION 07/10/2024 [facility] Goals (unrecognized section and content) Goals may be documented in a n alternate sectionGoals may be documented in an alternate sectionGoals may be documented in an alternate section Care Teams (unrecognized sec tion and content) Team Status: Active Member Role Status Dates Dr. Victorino Mckeon MD Family Provider Active Dr. Victorino Mckeon MD Primary Care Provider Active Team Status: Inactive Member Role Status Dates Dr. Victorino Mckeon MD Primary Care Provider, Attending Provider Active Communication Center Coordinator Relationship Specialty Start Date End Date Victorino Mckeon MD PCP - General Family Medicine 03/21/17 Communication Center Coordinator Relationship Specialty Start Date End Date Victorino Mckeon MD PCP - General Family Medicine 03/21/17 Communication Center Coordinator Relationship Specialty Start Date End Date Victorino Mckeon MD PCP - General Family Medicine 03/21/17 Communication Center Coordinator Relationship Specialty Start Date End Date Victorino Mckeon MD PCP - General Family Medicine 03/21/17 Communication Center Coordinator Relationship Specialty Start Date End Date Victorino Mckeon MD PCP - General Family Medicine 03/21/17 Communication Center Coordinator Relationship Specialty Start Date End Date Victorino Mckeon MD PCP - General Family Medicine 03/21/17 Communication Center Coordinator Relationship Specialty Start Date End Date Victorino Mckeon MD PCP - General Family Medicine 03/21/17 Source Comments (unrecognize d section and content) In the event this informatio n is protected by the Federal Confidentiality of Alcohol and Drug Abuse Patient Records regulations: The Federal rules restrict any use of the information to criminally investigate or prosecute any alcohol or drug abuse patient.[facility] the event this information is protected by the Federal Confidentiality of Alcohol and Drug Abuse Patient Records regulations: The Federal rules restrict any use of the information to criminally investigate or prosecute any alcohol or drug abuse patient.[facility] the event this information is protected by the Federal Confidentiality of Alcohol and Drug Abuse Patient Records regulations: The Federal rules restrict any use of the information to criminally investigate or prosecute any alcohol or drug abuse patient.[facility] the event this information is protected by the Federal Confidentiality of Alcohol and Drug Abuse Patient Records regulations: The Federal rules restrict any use of the information to criminally investigate or prosecute any alcohol or drug abuse patient.[facility] the event this information is protected by the Federal Confidentiality of Alcohol and Drug Abuse Patient Records regulations: The Federal rules restrict any use of the information to criminally investigate or prosecute any alcohol or drug abuse patient.[facility] the event this information is protected by the Federal Confidentiality of Alcohol and Drug Abuse Patient Records regulations: The Federal rules restrict any use of the information to criminally investigate or prosecute any alcohol or drug abuse patient.[facility] the event this information is protected by the Federal Confidentiality of Alcohol and Drug Abuse Patient Records regulations: The Federal rules restrict any use of the information to criminally investigate or prosecute any alcohol or drug abuse patient.[facility] the event this information is protected by the Federal Confidentiality of Alcohol and Drug Abuse Patient Records regulations: The Federal rules restrict any use of the information to criminally investigate or prosecute any alcohol or drug abuse patient.[facility] Reason for Visit (unrecogniz ed section and content) Reason Comments Physical Therapy Specialty Diagnoses / Procedures Referred By Contac t Referred To Contact [facility] Diagnoses Primary osteoarthritis of left knee Procedures CONSULT TO PHYSICAL THERAPY PHYSICAL THERAPY EVALUATION HIGH COMPLEX 45 MINS Fredi Orellana PA-C [address] [address] [facility] [place] [address] [place] [id number] Referral ID Status Reason Start Date Expiration Date Visits Requested Visits Authorized [id number] Authorized Auto-Generat ed Referral 03/27/2023 03/26/2024 99 99 Reason Comments New Knee Pain Reason Comments PT Eval Patient Education Reason Comments PT Progress Note Specialty Diagnoses / Procedures Referred By Trell t Referred To Contact Physical Therapy / PHYSICAL THERAPY Diagnoses Knee Pain RECHECK Procedures EST RS PT ORTH [facility] Fredi Orellana PA-C [address] [address] Isatu Aguilera, PT, DPT [address] [place] [address] Referral ID Status Reason Start Date Expiration Date V isits Requested Visits Authorized [id number] Authorized 03/27/2024 03/26/2025 99 99 FOR RECORDS PERTAINING TO PATIENTS WHO ARE OR HAVE BEEN ENROLLED IN A CHEMICAL DEPENDENCY/SUBSTANCEABUSE PROGRAM, SOME INFORMATION MAY BE OMITTED. This clinical summary was aggregated from multiple sources. Caution should be exercised in using it in the provision of clinical care. This summary normalizes information from multiple sources, and as a consequence, information in this document may materially change the coding, format and clinical context of patient data. In addition, data may be omitted in some cases. CLINICAL DECISIONS SHOULD BE BASED ON THE PRIMARY CLINICAL RECORDS. [facility] provides no warranty or guarantee of the accuracy or completeness of information in this document.
[2024-08-29 10:45] LABS: Hemoglobin A1c 8.5 % (<=5.6)
[2024-08-29 10:52] LABS: ALB/GLOB Ratio 1.3 RATIO (0.9-2.4); AST(SGOT) 22 U/L (<=37); Alanine Aminotransfer ALT/SGPT 19 U/L (<=46); Albumin, Serum 4.3 g/dL (3.5-5.0); Alkaline Phosphatase 71 U/L (40-129); Anion Gap 14 (5-15); BUN 15 mg/dL (4-19); BUN/Creat Ratio 16.4 RATIO (10-20); Calcium,Total 9.4 mg/dL (7.6-11.0); Carbon Dioxide 19.8 mmol/L (21.0-32.0); Chloride 102 mmol/L (98-108); Cholesterol 142 mg/dL (<=200); Creatinine, Serum 0.94 mg/dL (0.70-1.20); EST Glomerular Filtration Rate 95 (>60); Globulin 3.2 g/dL (2.2-4.2); Glucose 157 mg/dL (70-99); High Density Lipoprotein 32 mg/dL; Low Density Lipoprotein Calc. 76 mg/dL; Potassium 4.5 mmol/L (3.3-5.1); Protein, Total 7.5 g/dL (5.9-8.4); Sodium Level 136 mmol/L (133-145); Total Bilirubin 0.35 mg/dL (0.00-1.30); Triglycerides 171 mg/dL; Very Low Density Lipoprotein 34 mg/dL (5-40)
== END | disposition home or self-care (01) ==
LOC: MTLAB 08:20
PROVIDERS: PCP Family Medicine; Referring Provider Physician Assistant; Visit Provider Physician Assistant
DX: E11.21 Type 2 diabetes mellitus with diabetic nephropathy (principal); E78.2 Mixed hyperlipidemia; E04.9 Nontoxic goiter, unspecified
CPT/HCPCS: 36415; 80053; 80061; 83036; 84443

== ENCOUNTER → 2025-02-27 | Outpatient (CLI) | payer OTHER, SELFPAY ==
[2025-02-27 10:35] LABS: AST(SGOT) 19 U/L (<=37); Alanine Aminotransfer ALT/SGPT 14 U/L (<=46); Albumin, Serum 4.3 g/dL (3.5-5.0); Alkaline Phosphatase 67 U/L (40-129); Anion Gap 13 (5-15); BUN 12 mg/dL (4-19); BUN/Creat Ratio 14.6 RATIO (10-20); Calcium,Total 9.7 mg/dL (7.6-11.0); Carbon Dioxide 21.1 mmol/L (21.0-32.0); Chloride 104 mmol/L (98-108); Globulin 3.0 g/dL (2.2-4.2); Glucose 131 mg/dL (70-99); Potassium 4.3 mmol/L (3.3-5.1)
[2025-02-27 12:06] LABS: Creatinine, Urine (random) 82.90 mg/dL (39.00-259.00); Microalbumin,Random Urine 16.6 mg/L (<20 mg/L)
== END | disposition home or self-care (01) ==
LOC: MTLAB 09:02
PROVIDERS: PCP Family Medicine; Referring Provider Internal Medicine Endocrinology, Diabetes & Metabolism; Visit Provider Internal Medicine Endocrinology, Diabetes & Metabolism
DX: E11.65 Type 2 diabetes mellitus with hyperglycemia (principal)
CPT/HCPCS: 36415; 80053; 82043; 82570; 83036